=== PATIENT | female | born 1955 | race Caucasian/White ===

== ENCOUNTER 2017-03-15 17:22 | Inpatient (IN) | payer OTHER ==
[~2017-03-15] VITALS: Ht 157.5 cm; Wt 96.7 kg
[~2017-03-15 17:22] MED LIST: CIPR1TAB11 PO; CRS/10 PO; GLIP1TAB85 PO; LOSA1TAB PO; METF-384 PO
[2017-03-15] MEDS ORDERED: DILTIAZEM BOLUS / DRIP IV STA ×2 (17:49→19:40)
[2017-03-15 17:55] LABS: BASO % 1.3 %; BASO ABS # 0.13 K/uL (0-0.2); COMPLETE YES; EOS % 4.2 %; HEMATOCRIT 39.5 % (37-47); IG% 0.3 %; LYMPH % 34.6 %; LYMPH ABS # 3.52 K/uL (1.2-3.4); MEAN CELL VOLUME 87.6 fL (80-100); MEAN CORPUSCULAR HGB CONC 33.2 g/dl (32-36); MEAN PLATELET VOLUME 11.6 fL (7.4-10.4); MONO % 9.7 %; NEUT % 49.9 %; PLATELET COUNT 262 K/uL (130-400); RED BLOOD COUNT 4.51 M/uL (4.2-5.4); WHITE BLOOD COUNT 10.18 K/uL (4.8-10.8)
[2017-03-15] MEDS ORDERED: FLEC50TA20 PO (17:55)
[2017-03-15] MEDS ORDERED: ASPIRIN 81 MG CHEW PO STA (17:55)
[2017-03-15] MEDS ORDERED: DILTIAZEM HCL 5 MG/ML 5 ML VIAL IV SCH (18:00)
[2017-03-15] MEDS ORDERED: DILTIAZEM HCL INJ 125 MG in DEXTROSE 5% 100ML IV PRN (18:00)
[2017-03-15 18:07] LABS: BLOOD UREA NITROGEN 14 mg/dl (7-18); BUN/CREATININE RATIO 12.7 (10-20); CALCIUM 9.7 mg/dl (8.5-10.1); CARBON DIOXIDE 32 mmol/L (21-32); CHLORIDE 106 mmol/L (98-107); GLUCOSE 153 mg/dl (70-99); SODIUM 143 mmol/L (136-145)
[2017-03-15 18:12] LABS: CKMB/CK RATIO 1.5 (0-3.0)
--- NOTE | 2017-03-15 18:22 | DIAGNOSTIC IMAGING REPORT ---
CHEST ONE VIEW PORTABLE CLINICAL HISTORY: Chest pain. Atrial fibrillation. COMPARISON STUDY: Chest radiograph every 2015. FINDINGS: Lung volumes are normal. There is no consolidation. There is no evidence of pulmonary edema. Cardiac size is at the upper limits of normal. This is unchanged. No pneumothorax or pleural effusion is present. IMPRESSION: No acute cardiopulmonary findings. Electronically signed by: Ari Ricks M.D. 03/15/2017 6:21 PM Dictated Date/Time: 03/15/2017 6:20 PM
[2017-03-15] MEDS ORDERED: ALUMINUM/MAGNESIUM/SIMETH (MAALOX MAX) 30 ML UDC PO PRN (19:45)
[2017-03-15] MEDS ORDERED: MAGNESIUM HYDROXIDE SUSP 30 ML UDC PO PRN (19:45)
[2017-03-15] MEDS ORDERED: NITROGLYCERIN 0.4 MG SL PER TAB CHARGE SL PRN (19:45)
[2017-03-15] MEDS ORDERED: POLYETHYLENE (MIRALAX) 17 GM PACK PO PRN (19:45)
[2017-03-15] MEDS ORDERED: ACETAMINOPHEN 325 MG TAB PO PRN (19:45)
[2017-03-15] MEDS ORDERED: ONDANSETRON INJ 2 MG/ML 2 ML VIAL IV PRN (19:45)
[2017-03-15] MEDS ORDERED: SODIUM CHLORIDE 0.9% 1000ML 1,000 ML IV SCH (19:45)
[2017-03-15] MEDS ORDERED: IV FLUIDS COMPLETED PRN ×2 (20:15→20:30)
--- NOTE | 2017-03-15 20:16 | History and Physical ---
History & Physical Date & Time of Service: Mar 15, 2017 at 19:58 Chief Complaint: Chest Discomfort,A-Fib Primary Care Physician: Tacho Rincon PA-C History of Present Illness Source: patient 61 y/o F Hx PAF, HTN, HPL, DM - presents with palpitations and chest pressure. She is currently taking Flecainide and states she has not had a breakthrough episode of sustained AF for several months. Her rate on arrival to the hospital was close to 140. Her symptoms hacve resolved with correction of her rate in the ER. She denies SOB, N/V, light head, diaphoresis. 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 Status: Never Smoker Alcohol Use: none Drug Use: none Marital Status: Occupational Status: employed Allergies Coded Allergies: Sulfamethoxazole w/Trimethoprim (Unverified Allergy, Severe, weakness, 05/05) Penicillins (Verified Allergy, Unknown, CHILDHOOD REACTION, 05/05/16) Home Medications Scheduled Flecainide (Tambocor), 50 MG PO BID Glipizide Xl (Glucotrol Xl), 10 MG PO BID Losartan Potassium (Cozaar), 25 MG PO DAILY Metformin Hcl (Glucophage), 1,000 MG PO BID Rosuvastatin Calcium (Crestor), 10 MG PO DAILY Review of Systems Constitutional: No chills, No fever, No sweats Eyes: No eye pain, No worsening of vision ENT: No hearing loss, No nasal symptoms, No unusual epistaxis Respiratory: No cough, No sputum, No wheezing Cardiovascular: + problem reported (mild chest pressure), No PND, No chest pain , No orthopnea Abdomen: No nausea, No pain, No vomiting Musculoskeletal: No joint pain, No muscle pain Genitourinary - Female: No dysuria, No hematuria, No urinary frequency, No urinary incontinence, No urinary retention, No urinary urgency Neurologic: No memory loss, No paralysis, No weakness Psychiatric: No anhedonism, No depression symptoms Endocrine: No excessive thirst, No fatigue Hematologic / Lymphatic: No abnormal bleeding/bruising Integumentary: No itch, No rash Allergic / Immunologic: No environmental allergies, No pet sensitivities, No seasonal allergies Physical Exam Vital Signs Date Time Temp Pulse Resp B/P Pulse Ox O2 Delivery O2 Flow Rate FiO2 03/15/17 19:11 104 20 115/82 96 Room Air 03/15/17 18:46 107 03/15/17 18:20 94 18 120/78 98 Room Air 03/15/17 18:05 146 16 134/97 95 Room Air 03/15/17 17:48 142 03/15/17 17:45 139 20 147/119 99 Room Air 03/15/17 17:42 Room Air 03/15/17 17:30 36.6 140 20 179/90 96 Room Air General Appearance: WD/WN, no apparent distress Head: normocephalic Eyes: normal inspection, PERRL, EOMI ENT: normal ENT inspection, pharynx normal Neck: supple, no JVD Respiratory/Chest: chest non-tender, lungs clear Cardiovascular: no edema, no gallop, no JVD, no murmur, + irregularly irregular Abdomen/GI: normal bowel sounds, non tender, soft Back: normal inspection, no CVA tenderness, no muscle spasm Extremities/Musculoskelatal: normal inspection, no calf tenderness, normal capillary refill Neurologic/Psych: functional consultant II-XII nml as tested, no motor/sensory deficits, alert, normal mood/affect, normal reflexes, oriented x 3 Skin: normal color, warm/dry, no rash Diagnostics Laboratory Results Results Past 24 Hours Test 03/15/17 17:39 Range/Units White Blood Count 10.18 4.8-10.8 K/uL Red Blood Count 4.51 4.2-5.4 M/uL Hemoglobin 13.1 12.0-16.0 g/dL Hematocrit 39.5 37-47 % Mean Corpuscular Volume 87.6 80-100 fL Mean Corpuscular Hemoglobin 29.0 25-34 pg Mean Corpuscular Hemoglobin Concent 33.2 32-36 g/dl Platelet Count 262 130-400 K/uL Mean Platelet Volume 11.6 7.4-10.4 fL Neutrophils (%) (Auto) 49.9 % Lymphocytes (%) (Auto) 34.6 % Monocytes (%) (Auto) 9.7 % Eosinophils (%) (Auto) 4.2 % Basophils (%) (Auto) 1.3 % Neutrophils # (Auto) 5.08 1.4-6.5 K/uL Lymphocytes # (Auto) 3.52 1.2-3.4 K/uL Monocytes # (Auto) 0.99 0.11-0.59 K/uL Eosinophils # (Auto) 0.43 0-0.5 K/uL Basophils # (Auto) 0.13 0-0.2 K/uL RDW Standard Deviation 46.4 36.4-46.3 fL RDW Coefficient of Variation 14.4 11.5-14.5 % Immature Granulocyte % (Auto) 0.3 % Immature Granulocyte # (Auto) 0.03 0.00-0.02 K/uL Sodium Level 143 136-145 mmol/L Potassium Level 4.0 3.5-5.1 mmol/L Chloride Level 106 98-107 mmol/L Carbon Dioxide Level 32 21-32 mmol/L Anion Gap 5.0 3-11 mmol/L Blood Urea Nitrogen 14 7-18 mg/dl Creatinine 1.10 0.60-1.20 mg/dl Est Creatinine Clear Calc Drug Dose 58.2 ml/min Estimated GFR () 62.8 Estimated GFR (Non- 54.1 BUN/Creatinine Ratio 12.7 10-20 Random Glucose 153 70-99 mg/dl Calcium Level 9.7 8.5-10.1 mg/dl Total Creatine Kinase 238 26-192 U/L Creatine Kinase MB 3.6 0.5-3.6 ng/ml Creatine Kinase MB Ratio 1.5 0-3.0 Troponin I < 0.015 0-0.045 ng/ml EKG AF/RVR, LVH Impression Assessment and Plan 61 y/o F Hx PAF, HTN, HPL, DM - presents with palpitations and chest pressure. She is currently taking Flecainide and states she has not had a breakthrough episode of sustained AF for several months. Her rate on arrival to the hospital was close to 140. Her symptoms hacve resolved with correction of her rate in the ER. She denies SOB, N/V, light head, diaphoresis. 1) AF/RVR - pt placed on a Cardizem drip and admitted to telemetry - her rate is at ~ 100 following a 10mg bolus. Flecainide is held as it would not be a good choice of her fib persists. She has enough risk factors to merit chronic anticoagulation. 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 As she described some chest pressure and has a mild CK elevation, we will trend her troponin. 2) DM - placed on SS - oral meds held 3) HTN - She is on a Cardizem drip so we will held her BP meds pending AM evaluation. 4) HPL - cont Crestor Full code - Full-brand Lovenox Total time for this admit including review of labs, meds, EKG - discussion with ER MD and pt - 34 min VTE Prophylaxis VTE Risk Assessment Done? Y/N: Yes Risk Level: Low
[2017-03-15 21:00] VITALS: BP 131/74; PULSE 66; TEMP 36.6; O2SAT 96; Ht 157.5 cm; Wt 96.7 kg
[2017-03-15] MEDS: INSULIN ASPART 100 UNITS/ML 3 ML PEN SC SCH (21:00)
--- NOTE | 2017-03-15 21:00 | EMERGENCY ROOM VISIT NOTE ---
History Report prepared by Thuanibshlomo: Bronson Molina Under the Supervision of: Dr. López Rodrigues D.O. 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 She notes that her heart is racing. The patient had an episode of atrial fibrillation last year, when she felt similar palpitations. She is on Flecainide. She notes some chest pressure as well. She denies other cardiac history. She is not on blood thinners other than aspirin. Patient denies headache, change in vision, fevers, shortness of breath, hemoptysis, leg swelling, nausea, vomiting, diarrhea, pain with urination, and melena. 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 A total of 10 systems reviewed and were otherwise negative. Past Medical & Surgical Medical Problems: (1) Atrial fibrillation with RVR (2) Diab Jennifer Wo Compl, Type Ii Or Unspec Type, Not Uncntrld (3) Endometriosis (4) New onset atrial fibrillation Surgical Problems: (1) History of abdominoplasty (2) History of cholecystectomy (3) History of hysterectomy (4) Incisional hernia (5) Status post breast reduction Family History FH: cancer FH: diabetes mellitus FH: gallbladder disease FH: heart disease FH: hypertension FH: kidney disease FH: lung disease Social History Smoking Status: Never Smoker Alcohol Use: none Drug Use: none Marital Status: Housing Status: lives with family Occupation Status: employed Current/Historical Medications Scheduled Flecainide (Tambocor), 50 MG PO BID Glipizide Xl (Glucotrol Xl), 10 MG PO BID Losartan Potassium (Cozaar), 25 MG PO DAILY Metformin Hcl (Glucophage), 1,000 MG PO BID Rosuvastatin Calcium (Crestor), 10 MG PO DAILY Allergies Coded Allergies: Sulfamethoxazole w/Trimethoprim (Unverified Allergy, Severe, weakness, 05/05) Penicillins (Verified Allergy, Unknown, CHILDHOOD REACTION, 05/05/16) Physical Exam Vital Signs Date Time Temp Pulse Resp B/P Pulse Ox O2 Delivery O2 Flow Rate FiO2 03/15/17 20:31 83 18 132/83 96 Room Air 03/15/17 19:11 104 20 115/82 96 Room Air 03/15/17 18:46 107 03/15/17 18:20 94 18 120/78 98 Room Air 03/15/17 18:05 146 16 134/97 95 Room Air 03/15/17 17:48 142 03/15/17 17:45 139 20 147/119 99 Room Air 03/15/17 17:42 Room Air 03/15/17 17:30 36.6 140 20 179/90 96 Room Air Physical Exam GENERAL: Sitting up in bd, disheveled, no acute distress, nontoxic. EYE EXAM: normal conjunctiva. OROPHARYNX: no exudate, no erythema, lips, buccal mucosa, and tongue normal and mucous membranes are moist NECK: supple, no nuchal rigidity, no adenopathy, non-tender LUNGS: Clear to auscultation. Normal chest wall mechanics HEART: Tachycardic, irregularly irregular rhythm. No murmurs, S1 normal and S2 normal ABDOMEN: abdomen soft, non-tender, normo-active bowel sounds, no masses, no rebound or guarding. BACK: Back is symmetrical on inspection and there is no deformity, no midline tenderness, no CVA tenderness. SKIN: no rashes and no bruising UPPER EXTREMITIES: upper extremities are grossly normal. LOWER EXTREMITIES: No pitting edema. NEURO EXAM: Normal sensorium, cranial nerves II-XII grossly intact, normal speech, no gross weakness of arms, no gross weakness of legs. Gross sensation intact. Medical Decision & Procedures ER Provider Diagnostic Interpretation: Radiology results as stated below per my review and the radiologist's interpretation: CHEST ONE VIEW PORTABLE CLINICAL HISTORY: Chest pain. Atrial fibrillation. COMPARISON STUDY: Chest radiograph every 2015. FINDINGS: Lung volumes are normal. There is no consolidation. There is no evidence of pulmonary edema. Cardiac size is at the upper limits of normal. This is unchanged. No pneumothorax or pleural effusion is present. IMPRESSION: No acute cardiopulmonary findings. Electronically signed by: Ari Ricks M.D. 03/15/2017 6:21 PM Dictated Date/Time: 03/15/2017 6:20 PM Laboratory Results 03/15/17 17:39 Red Blood Count 4.51, Mean Corpuscular Volume 87.6, Mean Corpuscular Hemoglobin 29.0, Mean Corpuscular Hemoglobin Concent 33.2, Mean Platelet Volume 11.6, Neutrophils (%) (Auto) 49.9, Lymphocytes (%) (Auto) 34.6, Monocytes (%) (Auto) 9.7, Eosinophils (%) (Auto) 4.2, Basophils (%) (Auto) 1.3, Neutrophils # (Auto) 5.08, Lymphocytes # (Auto) 3.52, Monocytes # (Auto) 0.99, Eosinophils # (Auto) 0.43, Basophils # (Auto) 0.13 03/15/17 17:39 Test 03/15/17 17:39 White Blood Count 10.18 K/uL (4.8-10.8) Red Blood Count 4.51 M/uL (4.2-5.4) Hemoglobin 13.1 g/dL (12.0-16.0) Hematocrit 39.5 % (37-47) Mean Corpuscular Volume 87.6 fL (80-100) Mean Corpuscular Hemoglobin 29.0 pg (25-34) Mean Corpuscular Hemoglobin Concent 33.2 g/dl (32-36) Platelet Count 262 K/uL (130-400) Mean Platelet Volume 11.6 fL (7.4-10.4) Neutrophils (%) (Auto) 49.9 % Lymphocytes (%) (Auto) 34.6 % Monocytes (%) (Auto) 9.7 % Eosinophils (%) (Auto) 4.2 % Basophils (%) (Auto) 1.3 % Neutrophils # (Auto) 5.08 K/uL (1.4-6.5) Lymphocytes # (Auto) 3.52 K/uL (1.2-3.4) Monocytes # (Auto) 0.99 K/uL (0.11-0.59) Eosinophils # (Auto) 0.43 K/uL (0-0.5) Basophils # (Auto) 0.13 K/uL (0-0.2) RDW Standard Deviation 46.4 fL (36.4-46.3) RDW Coefficient of Variation 14.4 % (11.5-14.5) Immature Granulocyte % (Auto) 0.3 % Immature Granulocyte # (Auto) 0.03 K/uL (0.00-0.02) Anion Gap 5.0 mmol/L (3-11) Est Creatinine Clear Calc Drug Dose 58.2 ml/min Estimated GFR () 62.8 Estimated GFR (Non- 54.1 BUN/Creatinine Ratio 12.7 (10-20) Calcium Level 9.7 mg/dl (8.5-10.1) Total Creatine Kinase 238 U/L (26-192) Creatine Kinase MB 3.6 ng/ml (0.5-3.6) Creatine Kinase MB Ratio 1.5 (0-3.0) Troponin I < 0.015 ng/ml (0-0.045) Laboratory results per my review. Medications Administered Medications (Trade) Dose Ordered Sig/Juanita Route Start Time Stop Time Status Last Admin Dose Admin Aspirin (Aspirin Chew) 324 mg NOW STAT PO 03/15/17 17:55 03/15/17 17:57 DC 03/15/17 18:02 324 MG Diltiazem HCl 10 mg 10 mg TODAY@1800 IV 03/15/17 18:00 03/15/17 18:01 DC 03/15/17 18:01 10 MG Diltiazem HCl/ Dextrose (Cardizem Inj/D5 100ml) 125 ml @ 0 mls/hr Q0M PRN IV 03/15/17 18:00 04/14/17 17:59 03/15/17 18:05 5 MLS/HR ECG Indication: palpitations Rate (beats per minute): 142 Rhythm: atrial fibrillation (with RVR) Findings: ST depression (Lateral and AvL), left axis deviation Comparison ECG Date: 2015 Change: Atrial fibrillation and ST depressions are new compared to prior EKG. ED Course ED COURSE: Vital signs were reviewed and showed tachycardia. The patients medical record was reviewed The above diagnostic studies were performed and reviewed. ED treatments and interventions as stated above. 1735: The patient was evaluated in room C10. A complete history and physical examination was performed. 1748: Discussed the case with Dr. Edouard, Tub Attendant. 1755: Aspirin 324 mg PO. 1800: Diltiazem HCl 125 mg / dextrose 125 ml @ 0 mls/hr, Diltiazem 10 mg IV. 1830: The patient's heart rate is down to the 90s and low 100s. 1937: Updated the patient. 1944: Discussed the case with Dr. Liz [facility]. The patient will be evaluated. 1999: Upon reevaluation, the patient is doing well.I discussed my findings with the patient and she understands and agrees with the treatment plan. Based on the patients age, coexisting illnesses, exam and lab findings the decision to treat as an inpatient was made. The patient remained stable while under my care. The patient will be evaluated for further management. Medical Decision Differential diagnoses includes but is not limited to acute coronary syndrome, myocardial infarction, pericarditis, pulmonary embolus, aortic dissection, pneumonia, pneumothorax, musculoskeletal, shingles, esophageal. Patient is a 61-year-old female who presents the ER for palpitations associated with chest tightness. Upon presentation she is found to be in A. fib with RVR and rate in the 140s. Systolic pressures were in the 140s as well. She was given Cardizem drip and bolus following discussion with cardiology as she is on flecainide. She admits to taking 25 mg of flecainide. She admits that she should be on anticoagulation but has not been taking it. Following the drip and bolus of Cardizem her heart rate trended down to the 80s. Patient was monitored closely while on the Cardizem drip. She was admitted to internal medicine for A. fib with RVR. She was given a dose of aspirin. She was not given nitroglycerin as this examination with the Cardizem they have decreased her pressure to significantly. Consults Time Called: 1739 Consulting Physician: Dr. Edouard, Tub Attendant. Returned Call: 1747 1747: Discussed the case with Dr. Edouard, Tub Attendant. Additional Consults: Time Called: 1919 Consulted Physician: Dr. Liz [facility] Returned Call: 1944 Additional Comments: 1944: Discussed the case with Dr. Liz [facility]. The patient will be evaluated. Impression Primary Impression: Atrial fibrillation with RVR Critical Care I have personally spent 35 minutes of critical care time in the direct management of this patient. This includes bedside care, interpretation of diagnostic studies, and testing, discussion with consultants, patient, and family members, and other required patient management activities. This 35 minutes is in excess of all separately billable procedures. Scribe Attestation The scribe's documentation has been prepared under my direction and personally reviewed by me in its entirety. I confirm that the note above accurately reflects all work, treatment, procedures, and medical decision making performed by me. Departure Information Dispostion Being Evaluated By Hospitalist Referrals Tacho Rincon PA-C (PCP) Patient Instructions [facility]
[2017-03-15] MEDS: ENOXAPARIN 100 MG/1ML SYR SQ SCH (21:44)
[2017-03-15] MEDS ORDERED: GLUCOSE 40% GEL 15 GM TUBE PO PRN (21:45)
[2017-03-15] MEDS ORDERED: DEXTROSE 50% 50 ML SYR IV PRN (21:45)
[2017-03-15] MEDS ORDERED: GLUCOSE 10 TABS/TUBE PO PRN (21:45)
[2017-03-15] MEDS ORDERED: GLUCAGON FOR INJ 1 MG VIAL SQ PRN (21:45)
[2017-03-15 23:30] VITALS: BP 96/46; PULSE 62; TEMP 36.4; O2SAT 95
[2017-03-16 00:01] VITALS: O2SAT 96
[2017-03-16 03:30] VITALS: BP 96/44; PULSE 56; TEMP 36.5; O2SAT 95
[2017-03-16 04:00] VITALS: O2SAT 95
[2017-03-16 04:21] VITALS: BP 98/48; PULSE 56
[2017-03-16] MEDS: INSULIN ASPART 100 UNITS/ML 3 ML PEN SC SCH (07:00)
[2017-03-16 07:19] VITALS: BP 119/59; PULSE 57; TEMP 37; O2SAT 96
[2017-03-16] MEDS: ENOXAPARIN 100 MG/1ML SYR SQ SCH (07:51)
[2017-03-16] MEDS ORDERED: ASPIRIN 81 MG ECTAB PO SCH (09:00)
[2017-03-16] MEDS ORDERED: ROSUVASTATIN CALCIUM 10 MG TAB PO SCH (09:00)
[2017-03-16] MEDS ORDERED: APIX1TAB3 PO (10:32)
--- NOTE | 2017-03-16 10:34 | Discharge Instructions ---
Discharge Instructions Admission Admission Date: Mar 15, 2017 at 20:22 Admission Diagnosis: Atrial Fibrillation With Rvr. Discharge Care Plan - Problem: Atrial Fibrillation Care Plan - Goal(s): Decrease discomfort, Improve function Care Plan - Instructions: Activity Recommendations: no limitations Recommended Home Diet: Type 2 Diabetes AHA Provider Instructions: Please expect a call notifying you of your appointment with Cardiology VTE Core Measure Inpt VTE Proph given/why not?: Enoxaparin (Lovenox)SQ [place] Recommendations: Call your doctor if: * Temperature above 101 degrees * Pain not relieved by pain medicine ordered * There is increased drainage or redness from any incision * You have any unanswered questions or concerns. Your Doctors Instructions noted above were prepared by provider Varsha Manriquez.
[2017-03-16 10:36] VITALS: BP 119/59; PULSE 65; TEMP 37; O2SAT 96
--- NOTE | 2017-03-16 11:25 | Discharge Summary ---
Discharge Summary Date of Service Mar 16, 2017. Discharge Summary Admission Date: Mar 15, 2017 at 20:22 Discharge Date: Mar 16, 2017 Discharge Disposition: Home Principal Diagnosis: atrial fibrillation with RVR Medication Reconciliation New Medications: Apixaban (Eliquis) 5 Mg Tab 5 MG PO BID for 30 Days, #60 TAB Continued Medications: Flecainide (Tambocor) 50 Mg Tab 50 MG PO BID, TAB Glipizide Xl (Glucotrol Xl) 10 Mg Tab 10 MG PO BID Losartan Potassium (Cozaar) 25 Mg Tab 25 MG PO DAILY Metformin Hcl (Glucophage) 1,000 Mg Tab 1000 MG PO BID Rosuvastatin Calcium (Crestor) 10 Mg Tab 10 MG PO DAILY Discharge Exam Review of Systems: Constitutional: No chills Eyes: No worsening of vision ENT: No unusual epistaxis Respiratory: No sputum Cardiovascular: No orthopnea Abdomen: No nausea Musculoskeletal: No muscle pain Genitourinary - Female: No urinary frequency Genitourinary - Male: No dysuria, No hematuria Neurologic: No memory loss, No paralysis Psychiatric: No depression symptoms Endocrine: No fatigue Physical Exam: General Appearance: WD/WN, no apparent distress Eyes: normal inspection ENT: normal ENT inspection Neck: supple, no adenopathy Respiratory/Chest: chest non-tender, lungs clear, normal breath sounds Cardiovascular: regular rate, rhythm, no edema, no gallop, no JVD Abdomen / GI: normal bowel sounds, non tender, soft Extremities: normal inspection, no calf tenderness Skin: normal color Lymphatic: no adenopathy Hospital Course 61 y/o F Hx PAF, HTN, HPL, DM - presents with palpitations and chest pressure. She is currently taking Flecainide and states she has not had a breakthrough episode of sustained AF for several months. Her rate on arrival to the hospital was close to 140. Her symptoms resolved with correction of her rate in the ER. She denies SOB, N/V, light head, diaphoresis. 1) AF/RVR - pt placed on a Cardizem drip and admitted to telemetry - her rate is at ~ 100 following a 10mg bolus. Flecainide is held as it would not be a good choice of her fib persists. We have placed her on full-dose Lovenox. Pt converted to sinus rhythm and her heart rate dropped to the 60's. patient remained off Cardizem drip for > 12 hours and HR remained in NSR in the 60's. I spoke with Dr. Flores of cardiology who was dehydrogenation operator head the next morning and he agreed to restart pt on her flecainide. Patient stated her PCP had started her on eliquis for which she had the pills. She was instructed to start taking eliquis. Patient was discharged home in stable condition with arrangements made to schedule an appointment for pt to see Cardiology in 2-4 weeks Total Time Spent: Greater than 30 minutes This includes examination of the patient, discharge planning, medication reconciliation, and communication with other providers. Discharge Instructions Please refer to the electronic Patient Visit Report (Discharge Instructions) for additional information.
[2017-03-16] MEDS ORDERED: FLECAINIDE ACETATE 100 MG TAB PO SCH (21:00)
== END 2017-03-16 10:57 | disposition home or self-care (01) | DRG 310 ==
LOC: ENRESERVDT → ENRESERVTM → C.EDB 17:25 → C.2E 20:22
PROVIDERS: ADMIT Internal Medicine; ATTEND Internal Medicine
DX: I48.0 Paroxysmal atrial fibrillation (principal); I10 Essential (primary) hypertension; E11.9 Type 2 diabetes mellitus without complications; Z82.49 Family history of ischemic heart disease and other diseases of the circulatory system; Z83.3 Family history of diabetes mellitus

== ENCOUNTER → 2017-05-16 | Outpatient (CLI) | payer OTHER ==
[~2017-05-16] MED LIST changes: -CIPR1TAB11 PO; +CLR10 PO; +ELQ25 PO; +FLEC50TA20 PO; +FLUT0.15 NAE; +LPR25 PO; +PRT/20 PO
[2017-05-16 12:52] LABS: GLUCOSE,FASTING 141 mg/dl (70-99)
[2017-05-16 12:59] LABS: CHOLESTEROL 164 mg/dl (0-200); CHOLESTEROL/HDL RATIO 3.3; HDL CHOLESTEROL 49 mg/dl; TRIGLYCERIDES 159 mg/dl (0-150); VERY LOW DENSITY LIPOPROT CALC 32 mg/dl
== END | disposition home or self-care (01) ==
LOC: C.LABPBG 08:45
PROVIDERS: ATTEND Physician Assistant Medical
DX: Z00.01 Encounter for general adult medical examination with abnormal findings (principal)

== ENCOUNTER 2017-05-27 17:18 | Emergency (ER) | payer OTHER ==
[~2017-05-27] VITALS: Ht 157.5 cm; Wt 92.0 kg
[~2017-05-27 17:18] MED LIST changes: -CLR10 PO; -ELQ25 PO; -FLUT0.15 NAE; -LPR25 PO; -PRT/20 PO
[2017-05-27 17:21] VITALS: TEMP 36.7; Ht 157.5 cm; Wt 92.0 kg
[2017-05-27] MEDS ORDERED: SODIUM CHLORIDE 0.9% 1000ML 1,000 ML IV STA (17:29)
[2017-05-27] MEDS ORDERED: LPR25 PO (17:37)
[2017-05-27] MEDS ORDERED: PRT/20 PO (17:38)
[2017-05-27] MEDS ORDERED: ELQ25 PO (17:38)
[2017-05-27] MEDS ORDERED: CLR10 PO (17:38)
[2017-05-27] MEDS ORDERED: FLUT0.15 NAE (17:38)
[2017-05-27] MEDS ORDERED: ONDANSETRON INJ 2 MG/ML 2 ML VIAL IV STA (17:47)
--- NOTE | 2017-05-27 17:57 | DIAGNOSTIC IMAGING REPORT ---
CHEST ONE VIEW PORTABLE CLINICAL HISTORY: EVALUATE ALTERED MENTAL STATUS/WEAKNESS COMPARISON STUDY: 03/15/2017 FINDINGS: The bones soft tissues and hemidiaphragms are normal. The cardiomediastinal silhouette is normal. The lungs are clear. The pulmonary vasculature is normal. IMPRESSION: Negative chest. Electronically signed by: Timur Carrion M.D. 05/27/2017 5:56 PM Dictated Date/Time: 05/27/2017 5:56 PM
[2017-05-27 18:31] LABS: BASO % 1.5 %; BASO ABS # 0.09 K/uL (0-0.2); COMPLETE YES; EOS % 7.8 %; HEMATOCRIT 35.7 % (37-47); IG% 0.3 %; LYMPH % 46.9 %; LYMPH ABS # 2.89 K/uL (1.2-3.4); MEAN CELL VOLUME 89.9 fL (80-100); MEAN CORPUSCULAR HGB CONC 33.3 g/dl (32-36); MEAN PLATELET VOLUME 11.9 fL (7.4-10.4); MONO % 8.3 %; NEUT % 35.2 %; PLATELET COUNT 205 K/uL (130-400); RED BLOOD COUNT 3.97 M/uL (4.2-5.4); WHITE BLOOD COUNT 6.16 K/uL (4.8-10.8)
[2017-05-27 18:45] LABS: PROTHROMBIN TIME (PATIENT) 10.7 SECONDS (9.0-12.0)
[2017-05-27 18:51] LABS: ALT/SGPT 27 U/L (12-78); BLOOD UREA NITROGEN 13 mg/dl (7-18); BUN/CREATININE RATIO 13.6 (10-20); CALCIUM 9.3 mg/dl (8.5-10.1); CARBON DIOXIDE 31 mmol/L (21-32); CHLORIDE 102 mmol/L (98-107); CREATININE 0.95 mg/dl (0.60-1.20); GLUCOSE 103 mg/dl (70-99); MAGNESIUM 1.8 mg/dl (1.8-2.4); POTASSIUM 4.2 mmol/L (3.5-5.1); SODIUM 138 mmol/L (136-145)
[2017-05-27 19:00] LABS: ALKALINE PHOSPHATASE 66 U/L (45-117); AST/SGOT 19 U/L (15-37); CKMB/CK RATIO 1.5 (0-3.0)
[2017-05-27 20:04] LABS: URINE APPEARANCE CLEAR (CLEAR); URINE BILIRUBIN NEG (NEG); URINE COLOR YELLOW; URINE NITRITE NEG (NEG); UROBILINOGEN NEG (NEG); ZZUR CULT IF INDIC CLEAN CATCH YES
[2017-05-27 20:06] LABS: MANUAL MICROSCOPIC REQUIRED? NO; REVIEW REQ? NO
[2017-05-27 20:30] VITALS: BP 126/70; PULSE 50; O2SAT 98
--- NOTE | 2017-05-27 20:36 | EMERGENCY ROOM VISIT NOTE ---
History Report prepared by Nataly: Florencio Lino Under the Supervision of: Dr. Yanick Almeida D.O. 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 Pt then sat down. Coworkers took blood pressure and it was in the 170's. Pt does not have a history of HTN. Pt recently decreased Metoporol for her AFib. Pt stated that she became dizzy last month which prompted her to go to the doctor. Pt was diagonsed with allergies and sinusitis. Pt has been taking allergy medication. Pt stated that she is eating and drinking normally. Pt experienced nausea with the near syncope. Pt states that she is still dizzy. 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 This also happened to her a couple of weeks ago. 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 She saw her PCP, and they thought that it was related to her Metoprolol, so they lowered her dosage. She is on that for her history of atrial fibrillation. She was diagnosed with allergies and sinusitis. Today, this occurred again, but she notes that it was worse this time. She became dizzy and nauseated again, so she sat down. Her coworkers took her blood pressure, and it was in the 170's systolic. She does not have a history of hypertension. She denies any vomiting, diarrhea, chest pain, or shortness of breath. She has been eating and drinking normally. She denies any recent illnesses. 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 Review of Systems See HPI for pertinent positives & negatives. A total of 10 systems reviewed and were otherwise negative. Past Medical & Surgical Medical Problems: (1) Atrial fibrillation with RVR (2) Diab Jennifer Wo Compl, Type Ii Or Unspec Type, Not Uncntrld (3) Endometriosis (4) New onset atrial fibrillation Surgical Problems: (1) History of abdominoplasty (2) History of cholecystectomy (3) History of hysterectomy (4) Incisional hernia (5) Status post breast reduction Family History FH: cancer FH: diabetes mellitus FH: gallbladder disease FH: heart disease FH: hypertension FH: kidney disease FH: lung disease Social History Smoking Status: Never Smoker Alcohol Use: none Drug Use: none Marital Status: Housing Status: lives with family Occupation Status: employed Current/Historical Medications Scheduled Apixaban (Eliquis), 2.5 MG PO BID Flecainide (Tambocor), 50 MG PO BID Fluticasone Propionate (Nasal) (Flonase Allergy Relief), Unknown Dose ERICKA DAILY Glipizide Xl (Glucotrol Xl), 10 MG PO BID Loratadine (Claritin), 10 MG PO DAILY Losartan Potassium (Cozaar), 25 MG PO DAILY Metformin Hcl (Glucophage), 1,000 MG PO BID Metoprolol Tartrate (Lopressor), 12.5 MG PO BID Pantoprazole (Protonix), Unknown Dose PO DAILY Allergies Coded Allergies: Sulfamethoxazole w/Trimethoprim (Unverified Allergy, Severe, weakness, ) Penicillins (Verified Allergy, Unknown, CHILDHOOD REACTION, 05/27/17) Physical Exam Vital Signs Date Time Temp Pulse Resp B/P (MAP) Pulse Ox O2 Delivery O2 Flow Rate FiO2 05/27/17 20:30 50 18 126/70 98 Room Air 05/27/17 18:40 51 20 150/67 97 Room Air 05/27/17 18:31 49 20 136/64 97 Room Air 51 150/67 55 151/66 05/27/17 18:14 52 05/27/17 17:21 36.7 98 18 176/99 98 Room Air Physical Exam CONSTITUTIONAL/VITAL SIGNS: Reviewed / noted above. GENERAL: Non-toxic in appearance. INTEGUMENTARY: Warm, dry, and [place]. HEAD: Normocephalic. EYES: without scleral icterus or trauma. ENT/OROPHARYNX: clear and moist. LYMPHADENOPATHY/NECK: Is supple without lymphadenopathy or meningismus. RESPIRATORY: Lungs clear and equal. CARDIOVASCULAR: Regular rate and rhythm. GI/ABDOMEN: Soft and nontender. No organomegaly or pulsatile mass. No rebound or guarding. Normal bowel sounds. EXTREMITIES: Warm and well perfused. BACK: No CVA tenderness. NEUROLOGICAL: Intact without focal deficits. PSYCHIATRIC: normal affect. MUSCULOSKELETAL: Normally developed with good muscle tone. Medical Decision & Procedures ER Provider Diagnostic Interpretation: Radiology results as stated below per my review and radiologist interpretation: CHEST ONE VIEW PORTABLE CLINICAL HISTORY: EVALUATE ALTERED MENTAL STATUS/WEAKNESS COMPARISON STUDY: 03/15/2017 FINDINGS: The bones soft tissues and hemidiaphragms are normal. The cardiomediastinal silhouette is normal. The lungs are clear. The pulmonary vasculature is normal. IMPRESSION: Negative chest. Electronically signed by: Timur Carrion M.D. 05/27/2017 5:56 PM Dictated Date/Time: 05/27/2017 5:56 PM Laboratory Results 05/27/17 18:17 Red Blood Count 3.97, Mean Corpuscular Volume 89.9, Mean Corpuscular Hemoglobin 30.0, Mean Corpuscular Hemoglobin Concent 33.3, Mean Platelet Volume 11.9, Neutrophils (%) (Auto) 35.2, Lymphocytes (%) (Auto) 46.9, Monocytes (%) (Auto) 8.3, Eosinophils (%) (Auto) 7.8, Basophils (%) (Auto) 1.5, Neutrophils # (Auto) 2.17, Lymphocytes # (Auto) 2.89, Monocytes # (Auto) 0.51, Eosinophils # (Auto) 0.48, Basophils # (Auto) 0.09 05/27/17 18:17 Test 05/27/17 18:17 05/27/17 19:15 White Blood Count 6.16 K/uL (4.8-10.8) Red Blood Count 3.97 M/uL (4.2-5.4) Hemoglobin 11.9 g/dL (12.0-16.0) Hematocrit 35.7 % (37-47) Mean Corpuscular Volume 89.9 fL (80-100) Mean Corpuscular Hemoglobin 30.0 pg (25-34) Mean Corpuscular Hemoglobin Concent 33.3 g/dl (32-36) Platelet Count 205 K/uL (130-400) Mean Platelet Volume 11.9 fL (7.4-10.4) Neutrophils (%) (Auto) 35.2 % Lymphocytes (%) (Auto) 46.9 % Monocytes (%) (Auto) 8.3 % Eosinophils (%) (Auto) 7.8 % Basophils (%) (Auto) 1.5 % Neutrophils # (Auto) 2.17 K/uL (1.4-6.5) Lymphocytes # (Auto) 2.89 K/uL (1.2-3.4) Monocytes # (Auto) 0.51 K/uL (0.11-0.59) Eosinophils # (Auto) 0.48 K/uL (0-0.5) Basophils # (Auto) 0.09 K/uL (0-0.2) RDW Standard Deviation 47.0 fL (36.4-46.3) RDW Coefficient of Variation 14.1 % (11.5-14.5) Immature Granulocyte % (Auto) 0.3 % Immature Granulocyte # (Auto) 0.02 K/uL (0.00-0.02) Prothrombin Time 10.7 SECONDS (9.0-12.0) Prothromb Time International Ratio 1.0 (0.9-1.1) Activated Partial Thromboplast Time 25.0 SECONDS (21.0-31.0) Partial Thromboplastin Ratio 1.0 Anion Gap 5.0 mmol/L (3-11) Est Creatinine Clear Calc Drug Dose 65.6 ml/min Estimated GFR () 74.9 Estimated GFR (Non- 64.6 BUN/Creatinine Ratio 13.6 (10-20) Calcium Level 9.3 mg/dl (8.5-10.1) Magnesium Level 1.8 mg/dl (1.8-2.4) Total Bilirubin 0.5 mg/dl (0.2-1) Direct Bilirubin 0.1 mg/dl (0-0.2) Aspartate Amino Transf (AST/SGOT) 19 U/L (15-37) Alanine Aminotransferase (ALT/SGPT) 27 U/L (12-78) Alkaline Phosphatase 66 U/L (45-117) Total Creatine Kinase 67 U/L (26-192) Creatine Kinase MB 1.0 ng/ml (0.5-3.6) Creatine Kinase MB Ratio 1.5 (0-3.0) Troponin I < 0.015 ng/ml (0-0.045) Total Protein 7.2 gm/dl (6.4-8.2) Albumin 3.6 gm/dl (3.4-5.0) Lipase 225 U/L (73-393) Thyroid Stimulating Hormone (TSH) 2.850 uIu/ml (0.300-4.500) Urine Color YELLOW Urine Appearance CLEAR (CLEAR) Urine pH 5.0 (4.5-7.5) Urine Specific [place] 1.010 (1.000-1.030) Urine Protein NEG (NEG) Urine Glucose (UA) NEG (NEG) Urine Ketones NEG (NEG) Urine Occult Blood NEG (NEG) Urine Nitrite NEG (NEG) Urine Bilirubin NEG (NEG) Urine Urobilinogen NEG (NEG) Urine Leukocyte Esterase LARGE (NEG) Urine WBC (Auto) 10-30 /hpf (0-5) Urine RBC (Auto) 0-4 /hpf (0-4) Urine Hyaline Casts (Auto) 0 /lpf (0-5) Urine Epithelial Cells (Auto) 10-20 /lpf (0-5) Urine Bacteria (Auto) NEG (NEG) Laboratory results as stated above per my review. Medications Administered Medications (Trade) Dose Ordered Sig/Juantia Route Start Time Stop Time Status Last Admin Dose Admin Sodium Chloride 1,000 ml @ 999 mls/hr Q1H1M STAT IV 05/27/17 17:29 05/27/17 18:29 DC 05/27/17 18:25 999 MLS/HR Ondansetron HCl (Zofran Inj) 4 mg NOW STAT IV 05/27/17 17:47 05/27/17 17:48 DC 05/27/17 18:25 4 MG ECG Indication: syncope (Near) Rate (beats per minute): 48 Rhythm: sinus bradycardia Findings: no acute ischemic change, no ectopy ED Course 1724: Previous medical records were reviewed. The patient was evaluated in room B6. A complete history and physical examination was performed. 1728: Ordered Sodium Chloride 1000 ml @ 999 mls/hr IV 1746: Ordered Zofran Inj 4 mg IV 2036: On reevaluation, the patient is resting. I discussed the results and findings with the patient. She verbalized agreement of the treatment plan. She was discharged home. Medical Decision Differential diagnosis: Etiologies such as vasovagal event, infection, hypoglycemia, electrolyte abnormalities, cardiac sources, intracerebral event, toxicologic, neurologic, as well as others were entertained. Medication Reconciliation: I attest that I have personally reviewed the patient' s current medication list. Patient was found to have a slightly elevated blood pressure due to circumstances. I do not believe that the patient requires hypertension monitoring. This is a 61-year-old female who presents to the ED with a chief complaint of feeling lightheaded while she was working today. 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 She states that she was standing and she became lightheaded and had to sit down. She got nauseated. She denied having chest pains, palpitations, shortness of breath or any other significant symptoms. She has been eating and drinking well. She denies any recent illness. She does have history of A. fib. She is unable to this. She is normally in a sinus rhythm. EKG today shows a sinus rhythm rate of 48. No acute injury or ectopy. CBC was unremarkable. PRP and CMP is normal. Chest x-ray is negative for acute disease. Troponin is negative. Urine did not show infection. The patient was treated with IV fluids. She was given IV Zofran. Orthostatic vital signs were okay. The patient was told results the test. She is felt to be stable for discharge and outpatient follow-up. Impression Primary Impression: Light-headed feeling Scribe Attestation The scribe's documentation has been prepared under my direction and personally reviewed by me in its entirety. I confirm that the note above accurately reflects all work, treatment, procedures, and medical decision making performed by me. Departure Information Dispostion Home / Self-Care Referrals Tacho Rincon PA-C (PCP) Forms HOME CARE DOCUMENTATION FORM, IMPORTANT VISIT INFORMATION Patient Instructions Dizziness Fainting Poss Causes, My [facility] Additional Instructions Follow-up with your doctor for further care and evaluation in 1-6 days. Return to the emergency department for worsening or new symptoms or any concerns. You have been examined and treated today on an emergency basis only. This is not a substitute for, or an effort to provide, complete comprehensive medical care. It is impossible to recognize and treat all injuries or illnesses in a single emergency department visit. It is therefore important that you follow up closely with your doctor. Call as soon as possible for an appointment.
== END 2017-05-27 20:55 | disposition home or self-care (01) ==
LOC: EDBD 17:18 → C.EDB 17:20
DX: R42 Dizziness and giddiness (principal); I10 Essential (primary) hypertension; I48.91 Unspecified atrial fibrillation; E11.9 Type 2 diabetes mellitus without complications; Z90.710 Acquired absence of both cervix and uterus; Z90.49 Acquired absence of other specified parts of digestive tract; Z90.89 Acquired absence of other organs; Z83.3 Family history of diabetes mellitus; Z82.49 Family history of ischemic heart disease and other diseases of the circulatory system; Z79.01 Long term (current) use of anticoagulants; Z79.84 Long term (current) use of oral hypoglycemic drugs; Z79.899 Other long term (current) drug therapy

== ENCOUNTER → 2017-07-17 | Outpatient (CLI) | payer OTHER ==
[~2017-07-17] MED LIST changes: +CLR10 PO; -CRS/10 PO; +ELQ25 PO; +FLUT0.15 NAE; +LPR25 PO; +PRT/20 PO
[2017-07-17 13:17] LABS: ESTIMATED AVERAGE GLUCOSE 174 mg/dl; HA1C FLAG Normal (Normal)
== END | disposition home or self-care (01) ==
LOC: C.LABPBG 08:04
PROVIDERS: ATTEND Physician Assistant Medical
DX: E11.65 Type 2 diabetes mellitus with hyperglycemia (principal)

== ENCOUNTER → 2018-07-22 | Outpatient (CLI) | payer OTHER ==
[2018-07-22 09:45] LABS: HEMATOCRIT 36.5 % (37-47); HEMOGLOBIN 11.7 g/dL (12.0-16.0); MEAN CELL VOLUME 89.9 fL (80-100); MEAN CORPUSCULAR HEMOGLOBIN 28.8 pg (25-34); MEAN CORPUSCULAR HGB CONC 32.1 g/dl (32-36); MEAN PLATELET VOLUME 11.9 fL (7.4-10.4); PLATELET COUNT 242 K/uL (130-400); RED CELL DISTRIBUTION WIDTH CV 14.2 % (11.5-14.5); RED CELL DISTRIBUTION WIDTH SD 46.3 fL (36.4-46.3); WHITE BLOOD COUNT 7.17 K/uL (4.8-10.8)
[2018-07-22 10:12] LABS: ALBUMIN 3.6 gm/dl (3.4-5.0); ALKALINE PHOSPHATASE 66 U/L (45-117); ALT/SGPT 33 U/L (12-78); AST/SGOT 23 U/L (15-37); BLOOD UREA NITROGEN 16 mg/dl (7-18); CARBON DIOXIDE 29 mmol/L (21-32); CREATININE 0.92 mg/dl (0.60-1.20); GLUCOSE 140 mg/dl (70-99); POTASSIUM 4.7 mmol/L (3.5-5.1); SODIUM 140 mmol/L (136-145); TOTAL PROTEIN 7.3 gm/dl (6.4-8.2)
[2018-07-22 10:17] LABS: CHOLESTEROL 153 mg/dl (0-200); GLUCOSE,FASTING 140 mg/dl (70-99); LDL CHOLESTEROL (DIRECT) 79 mg/dl
== END | disposition home or self-care (01) ==
LOC: C.LAB 08:52
PROVIDERS: ATTEND Physician Assistant Medical
DX: Z00.00 Encounter for general adult medical examination without abnormal findings (principal); I48.0 Paroxysmal atrial fibrillation

== ENCOUNTER 2020-12-06 14:00 | Observation (INO) ==
[2020-12-06] MEDS ORDERED: SODIUM CHLORIDE 0.9% 1000ML 500 ML IV ONE (14:14)
[2020-12-06] MEDS ORDERED: STAT IV Infusion **Titration per Protocol STA (14:14)
[2020-12-06] MEDS ORDERED: dilTIAZem HCl 5 MG/ML 5 ML VIAL IV STA (14:14)
[2020-12-06 14:26] LABS: Basophils # (auto) 0.07 K/uL (0-0.2); Eosinophils # (auto) 0.35 K/uL (0-0.5); Eosinophils % (auto) 4.8 %; Hematocrit (blood only) 36.1 % (37-47); Hemoglobin 11.9 g/dL (12.0-16.0); Immature Granulocytes # (auto) 0.01 K/uL (0.00-0.02); Immature Granulocytes % (auto) 0.1 %; Lymphocytes # (auto) 2.75 K/uL (1.2-3.4); Mean Corpuscular Hemoglobin 29.8 pg (25-34); Mean Corpuscular Volume 90.5 fL (80-100); Mean Platelet Volume 11.7 fL (7.4-10.4); Monocytes # (auto) 0.63 K/uL (0.11-0.59); Monocytes % (auto) 8.7 %; Neutrophils # (auto) 3.43 K/uL (1.4-6.5); Neutrophils % (auto) 47.4 %; Platelet Count 262 K/uL (130-400); RDW Coefficient of Variation 13.6 % (11.5-14.5); RDW Standard Deviation 45.2 fL (36.4-46.3); Red Blood Count 3.99 M/uL (4.2-5.4); White Blood Count 7.24 K/uL (4.8-10.8)
[2020-12-06 14:37] LABS: Partial Thromboplastin Ratio 0.9; Partial Thromboplastin Time 24.9 Seconds (21.0-31.0); Prothrombin Time 10.7 Seconds (9.0-12.0)
--- NOTE | 2020-12-06 14:40 | Emergency Department Note ---
Impression & Plan Atrial fibrillation with RVR, Anemia ED Provider Note NAME: ALLAN MURPHY AGE: 65 SEX: F : 1955 ARRIVES VIA: Walk-In INFORMANT: Patient ED PROVIDER(S): López Rodrigues DO CHIEF COMPLAINT: Dizzy and palpitations HPI: Patient is a 65-year-old female who presents the ER for A. fib RVR. She was feeling fine today. She got lunch. She felt her heart racing and flip- flopping. She felt dizzy coming back from lunch. She did have some coffee prior to this. They got an EKG upstairs and she was found to be in A. fib with RVR. She was brought down to the ER. She denies any headache or change in vision. No chest pain or shortness of breath. No nausea vomiting or diarrhea. Denies any dysuria urgency or frequency. History of A. fib with RVR and previo us ablation about 3 years ago at [facility]. She has been medically cleared from that standpoint off of flecainide and anticoagulation. ROS: See above HPI for pertinent positives & negatives. A total of 10 systems reviewed and were otherwise negative. PAST MEDICAL HISTORY:See Below PAST SURGICAL HISTORY:See Below FAMILY HISTORY:See Below SOCIAL HISTORY:See Below HOME MEDICATIONS:See Below ALLERGIES:See Below VITALS:See Below PHYSICAL EXAMINATION: GENERAL: Sitting up in bed, alert, well appearing, well nourished, no distress, non-toxic EYE EXAM: normal conjunctiva. OROPHARYNX: no exudate, no erythema, lips, buccal mucosa, and tongue normal and mucous membranes are moist NECK: supple, no nuchal rigidity, no adenopathy, non-tender LUNGS: Clear to auscultation. Normal chest wall mechanics HEART: Tachycardic and irregular regular, S1 normal and S2 normal ABDOMEN: abdomen soft, non-tender, normo-active bowel sounds, no masses, no rebound or guarding. UPPER EXTREMITIES: upper extremities are grossly normal. LOWER EXTREMITIES: No pitting edema. NEURO EXAM: Normal sensorium, cranial nerves II-XII grossly intact, normal speech, no gross weakness of arms, no gross weakness of legs. MEDICAL DECISION MAKING: Patient is a 65-year-old female who presents the ER for A. fib RVR. Patient ablation 3 years ago was found to be in A. fib RVR while at work today. Upon presentation heart rates in the 150s. IV was established blood work was obtained. Labs show no significant leukocytosis but mild anemia. INR unremarkable. BMP with LFTs bilirubin and troponin and lipase were unremarkable. Covid was negative. Chest x-ray was unremarkable. Patient was placed on Cardizem drip and bolus. Heart rate trended down. She was updated bedside. She is admitted to hospital for further work-up Triage Nursing notes reviewed. Prior medical records reviewed Vital Signs: reviewed and remarkable for A. cain RVR Differential diagnosis: Differential diagnoses includes but is not limited to acute coronary syndrome, myocardial infarction, pericarditis, pulmonary embolus, aortic dissection, pneumonia, pneumothorax, musculoskeletal, shingles, esophageal. ER treatment provided: See below Diagnostics interpreted by me: ECG: A. cain RVR rate of 126 Left axis No PVCs QTC 388 Cardiac Monitoring: An order was placed for continuous cardiac monitoring. The monitor shows a rate of 140 with Afib RVR rhythm. Laboratory studies: As stated above and show below. Imaging studies: Portable AP upright 1 view of the chest shows no focal infiltrate Consultation(s): Discussed with the hospitalist for further evaluation ED COURSE: Procedures: none Critical Care: I have personally spent 40 minutes of critical care time in the direct management of this patient. This includes bedside care, interpretation of diagnostic studies, and testing, discussion with consultants, patient, and family members, and other required patient management activities. This 40 minutes is in excess of all separately billable procedures. Past Med/Surg History Medical History (Updated 12/06/20 @ 17:55 by López Rodrigues DO) Atrial fibrillation with RVR Diabetes Endometriosis Surgical History History of abdominoplasty History of bilateral carpal tunnel release History of cholecystectomy History of hysterectomy Incisional hernia Status post breast reduction Social History Smoking Status: Never smoker marital status: Feels Safe at Home: Yes Allergies Allergies Allergy/AdvReac Type Severity Reaction Status Date / Time Bactrim Allergy Severe weakness Unverified 05/27/17 17:36 sulfamethoxazole Allergy Severe weakness Verified 12/06/20 15:10 trimethoprim Allergy Severe weakness Verified 12/06/20 15:10 Penicillins Allergy Unknown CHILDHOOD Verified 12/06/20 15:10 REACTION Home Meds Home Medications Medication Instructions Recorded Confirmed losartan 25 mg PO DAILY 05/13/20 12/06/20 metformin 1,000 mg PO BID 05/13/20 12/06/20 rosuvastatin 10 mg PO DAILY 05/13/20 12/06/20 acetaminophen [Tylenol Extra 1,000 mg PO Q6H PRN 12/06/20 12/06/20 Strength] semaglutide [Ozempic] 0.5 mg SUBCUT WK 12/06/20 12/06/20 Previous Rx's Medication Instructions Recorded diclofenac sodium 75 mg 75 mg PO BID PRN #60 tab 08/24/20 tablet,delayed release Results & Data (ED) Vital Signs Vital Signs - 24 hr 12/06/20 14:06 12/06/20 14:07 12/06/20 14:11 Pulse Rate 122 H 120 H Pulse Rate [Left Finger] 128 H Pulse Rate from SpO2 Sensor Respiratory Rate 24 24 24 Respiratory Effort / Characteristics Non-Labored Respiratory Depth Normal Blood Pressure 168/109 H Blood Pressure [Left Arm] 136/90 Blood Pressure Mean 128 Blood Pressure Mean [Left Arm] 105 Pulse Oximetry 98 99 Oxygen Delivery Method Room Air Room Air Sepsis Recent Fever Within 48 Hours No Sepsis New/Unexplained Change in Mental Status N/A Sepsis Action Taken by Nursing No Action Required 12/06/20 14:20 12/06/20 14:30 12/06/20 14:40 Pulse Rate 121 H 112 H 133 H Pulse Rate [Left Finger] Pulse Rate from SpO2 Sensor 116 H 113 H 126 H Respiratory Rate 19 22 18 Respiratory Effort / Characteristics Respiratory Depth Blood Pressure 150/74 H 143/102 H 130/90 Blood Pressure [Left Arm] Blood Pressure Mean 104 108 103 Blood Pressure Mean [Left Arm] Pulse Oximetry 97 97 96 Oxygen Delivery Method Room Air Sepsis Recent Fever Within 48 Hours Sepsis New/Unexplained Change in Mental Status Sepsis Action Taken by Nursing 12/06/20 14:45 12/06/20 14:50 12/06/20 14:53 Pulse Rate 118 H 132 H 78 Pulse Rate [Left Finger] Pulse Rate from SpO2 Sensor 120 H 122 H 79 Respiratory Rate 20 21 18 Respiratory Effort / Characteristics Respiratory Depth Blood Pressure 119/83 127/85 Blood Pressure [Left Arm] Blood Pressure Mean 94 118 Blood Pressure Mean [Left Arm] Pulse Oximetry 94 97 97 Oxygen Delivery Method Room Air Room Air Room Air Sepsis Recent Fever Within 48 Hours Sepsis New/Unexplained Change in Mental Status Sepsis Action Taken by Nursing 12/06/20 14:56 12/06/20 15:00 12/06/20 15:15 Pulse Rate 84 80 Pulse Rate [Left Finger] Pulse Rate from SpO2 Sensor 88 78 Respiratory Rate 25 H 19 Respiratory Effort / Characteristics Respiratory Depth Blood Pressure 122/85 123/76 Blood Pressure [Left Arm] Blood Pressure Mean 98 81 Blood Pressure Mean [Left Arm] Pulse Oximetry 96 97 98 Oxygen Delivery Method Room Air Room Air Room Air Sepsis Recent Fever Within 48 Hours Sepsis New/Unexplained Change in Mental Status Sepsis Action Taken by Nursing 12/06/20 15:30 Pulse Rate 84 Pulse Rate [Left Finger] Pulse Rate from SpO2 Sensor 83 Respiratory Rate 20 Respiratory Effort / Characteristics Respiratory Depth Blood Pressure 115/84 Blood Pressure [Left Arm] Blood Pressure Mean 97 Blood Pressure Mean [Left Arm] Pulse Oximetry 97 Oxygen Delivery Method Room Air Sepsis Recent Fever Within 48 Hours Sepsis New/Unexplained Change in Mental Status Sepsis Action Taken by Nursing Laboratory Data Result diagrams: 12/06/20 14:10 12/06/20 14:10 Lab Results 12/06/20 12/06/20 12/06/20 Range/Units 14:10 14:10 14:10 WBC 7.24 (4.8-10.8) K/uL RBC 3.99 L (4.2-5.4) M/uL Hgb 11.9 L (12.0-16.0) g/dL Hct 36.1 L (37-47) % MCV 90.5 (80-100) fL MCH 29.8 (25-34) pg MCHC 33.0 (32-36) g/dL RDW Std Deviation 45.2 (36.4-46.3) fL RDW Coeff of Bing 13.6 (11.5-14.5) % Plt Count 262 (130-400) K/uL MPV 11.7 H (7.4-10.4) fL Immature Gran % (Auto) 0.1 % Neut % (Auto) 47.4 % Lymph % (Auto) 38.0 % [place] % (Auto) 8.7 % Eos % (Auto) 4.8 % Baso % (Auto) 1.0 % Neut # (Auto) 3.43 (1.4-6.5) K/uL Lymph # (Auto) 2.75 (1.2-3.4) K/uL [place] # (Auto) 0.63 H (0.11-0.59) K/uL Eos # (Auto) 0.35 (0-0.5) K/uL Baso # (Auto) 0.07 (0-0.2) K/uL Immature Gran # (Auto) 0.01 (0.00-0.02) K/uL PT 10.7 (9.0-12.0) Seconds INR 1.0 (0.9-1.1) APTT 24.9 (21.0-31.0) Seconds PTT Ratio 0.9 Sodium 138 (136-145) mmol/L Potassium 4.7 (3.5-5.1) mmol/L Chloride 103 (98-107) mmol/L Carbon Dioxide 29 (21-32) mmol/L Anion Gap 6.0 (3-11) BUN 11 (7-18) mg/dl Creatinine 1.01 (0.6-1.2) mg/dl Est Cr Clr Drug Dosing 60.1 ml/min Est GFR ( Amer) 67.7 Est GFR (Non-Af Amer) 58.4 BUN/Creatinine Ratio 11.3 (10-20) Glucose 169 H (70-99) mg/dl Calcium 9.7 (8.5-10.1) mg/dl Total Bilirubin 0.6 (0.2-1) mg/dl AST 21 (15-37) U/L ALT 28 (12-78) U/L Alkaline Phosphatase 88 (45-117) U/L Troponin I < 0.015 (0-0.045) ng/ml Total Protein 7.6 (6.4-8.2) gm/dl Albumin 3.8 (3.4-5.0) gm/dl Globulin 3.8 (2.5-4.0) gm/dl Albumin/Globulin Ratio 1.0 (0.9-2) Lipase 332 (73-393) U/L SARS-CoV-2 Ag (Rapid) (Negative) 12/06/20 Range/Units 15:35 WBC (4.8-10.8) K/uL RBC (4.2-5.4) M/uL Hgb (12.0-16.0) g/dL Hct (37-47) % MCV (80-100) fL MCH (25-34) pg MCHC (32-36) g/dL RDW Std Deviation (36.4-46.3) fL RDW Coeff of Bing (11.5-14.5) % Plt Count (130-400) K/uL MPV (7.4-10.4) fL Immature Gran % (Auto) % Neut % (Auto) % Lymph % (Auto) % [place] % (Auto) % Eos % (Auto) % Baso % (Auto) % Neut # (Auto) (1.4-6.5) K/uL Lymph # (Auto) (1.2-3.4) K/uL [place] # (Auto) (0.11-0.59) K/uL Eos # (Auto) (0-0.5) K/uL Baso # (Auto) (0-0.2) K/uL Immature Gran # (Auto) (0.00-0.02) K/uL PT (9.0-12.0) Seconds INR (0.9-1.1) APTT (21.0-31.0) Seconds PTT Ratio Sodium (136-145) mmol/L Potassium (3.5-5.1) mmol/L Chloride (98-107) mmol/L Carbon Dioxide (21-32) mmol/L Anion Gap (3-11) BUN (7-18) mg/dl Creatinine (0.6-1.2) mg/dl Est Cr Clr Drug Dosing ml/min Est GFR ( Amer) Est GFR (Non-Af Amer) BUN/Creatinine Ratio (10-20) Glucose (70-99) mg/dl Calcium (8.5-10.1) mg/dl Total Bilirubin (0.2-1) mg/dl AST (15-37) U/L ALT (12-78) U/L Alkaline Phosphatase (45-117) U/L Troponin I (0-0.045) ng/ml Total Protein (6.4-8.2) gm/dl Albumin (3.4-5.0) gm/dl Globulin (2.5-4.0) gm/dl Albumin/Globulin Ratio (0.9-2) Lipase (73-393) U/L SARS-CoV-2 Ag (Rapid) Negative (Negative) Administered Medications Diltiazem HCl 125 mg/ Dextrose 125 mls @ 5 mls/hr IV .Q24H [facility]; Protocol Stop: 01/05/21 14:14 Last Titration: 12/06/20 16:52 Dose: 0 mg/hr, 0 mls/hr Documented by: [id number] Cosigned by: [id number] Admin: 12/06/20 14:48 Dose: 5 mg/hr, 5 mls/hr Documented by: [id number] Cosigned by: [id number] Discontinued Medications Diltiazem HCl (Diltiazem Hcl 5 Mg/Ml 5 Ml Vial) 10 mg IV NOW STA Stop: 12/06/20 14:15 Last Admin: 12/06/20 14:47 Dose: 10 mg Documented by: [id number] Cosigned by: [id number] Sodium Chloride (Nss 1000ml) 500 mls @ 999 mls/hr IV .Q31M ONE Stop: 12/06/20 14:44 Last Infusion: 12/06/20 15:34 Dose: 0 mls/hr Documented by: [id number] Admin: 12/06/20 14:50 Dose: 999 mls/hr Documented by: [id number] Miscellaneous (Stat Iv Infusion Titration Per Protocol) 1 ea N/A NOW STA Stop: 12/06/20 14:15 Last Admin: 12/06/20 14:56 Dose: Not Given Documented by: [id number] Discharge Plan Visit Data Chief Complaint: Dizziness ED Provider: López Rodrigues Discharge Problem: Atrial fibrillation with RVR, Anemia Patient Disposition: Admitted As Inpatient Discharge Instructions Interventions: ED Discharge Assessment Last Done: 12/06/20 16:54 Discharge Problem: Anemia Qualifiers: Anemia type: unspecified type Qualified Code(s): D64.9 - Anemia, unspecified
--- NOTE | 2020-12-06 14:43 | XRay Report ---
XR chest 1V portable HISTORY: Atypical Chest Pain COMPARISON: Chest 05/27/2017. FINDINGS: The lungs are clear. The heart is borderline enlarged. This remains unchanged. No pleural e ffusions. No pneumothorax. IMPRESSION: No significant change compared to the prior study. No acute process. ACT 112: Negative or not required by law. Electronically signed by: Epi Gibbons M.D. 12/06/2020 2:42 PM
[2020-12-06 14:45] LABS: Alanine Aminotransferase 28 U/L (12-78); Albumin Level 3.8 gm/dl (3.4-5.0); Aspartate Aminotransferase 21 U/L (15-37); BUN Creatinine Ratio 11.3 (10-20); Blood Urea Nitrogen 11 mg/dl (7-18); Calcium 9.7 mg/dl (8.5-10.1); Carbon Dioxide 29 mmol/L (21-32); Chloride 103 mmol/L (98-107); Creatinine Clr Calc Pharmacy 60.1 ml/min; Est GFR (African American) 67.7; Est GFR (Non-African American) 58.4; Glucose 169 mg/dl (70-99); Lipase 332 U/L (73-393); Potassium 4.7 mmol/L (3.5-5.1); Sodium 138 mmol/L (136-145)
[2020-12-06] MEDS: dilTIAZem HCL 125 MG in DEXTROSE 5% 100 ML IV SCH ×2 (14:48→22:09)
[2020-12-06 14:52] LABS: Alkaline Phosphatase 88 U/L (45-117); Bilirubin,Total 0.6 mg/dl (0.2-1); Globulin 3.8 gm/dl (2.5-4.0); Total Protein 7.6 gm/dl (6.4-8.2); Troponin I < 0.015 ng/ml (0-0.045)
--- NOTE | 2020-12-06 16:06 | History & Physical Report ---
Date of Service December 06, 2020 Assessment & Plan (1) Atrial fibrillation with RVR: Due to the patient's recurrence of atrial fibrillation she will be admitted to the hospital. We will place her on a monitored floor for continued cardiac monitoring. We will trend her cardiac enzymes and EKGs. We will maintain her on her diltiazem drip as this has achieved good rate control. Check a magnesium as well as a TSH make any corrections to her medicines needed based on these lab results. I would check a 2D echo to assess her cardiac function as well as assess for any valvular abnormalities. We will obtain a cardiology consultation. I was able to discuss the case with Dr. Zuñiga about th e decision of cardiology and he agrees with the above-noted plan. In addition he has recommended that we resume the patient on Eliquis. Additional recommendations will be forthcoming based on her clinical status as it unfolds in the ensuing tests as they are completed. I did discuss CODE STATUS with this patient and she will be a level 1 full code. The patient will be on Eliquis no further DVT prevention is required. 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 Patient has a history of atrial fibrillation for which she underwent an ablation in October [address] [facility]. Following her ablation she did follow with Dr. Lane of [facility] physician group. The patient was previously taking flecainide as well as Eliquis but she has maintained normal sinus rhythm and has had these medicines discontinued. She has been doing well from a cardiology standpoint she has since been discharged from their practice. Earlier today shortly after eating lunch the patient was ambulating back to her work area when she developed palpitations and lightheadedness and some slight chest tightness. She says she was not short of breath. Denies any fever shakes or chills. She did not have a syncopal episode and did not fall. She presented to the emergency department for this problem where she had an EKG that showed that she had atrial fibrillation with rapid ventricular response. She underwent a chest x-ray that showed no acute cardiopulmonary process. CBC r evealed white blood cell count and platelet count were normal. Her hemoglobin and hematocrit were 11.9 and 36.1. Sodium potassium BUN and creatinine were all noted to be within normal range there is no noted elevation of her cardiac enzymes. A Covid test was negative. The treating emergency room physician initiated a Cardizem drip and he achieved good rate control and the patient's symptoms abated. We have been asked to see for admission and at the time of my exam she is resting comfortably in bed in no distress. I did question the patient on her day-to-day activities and she leads a very active lifestyle. She says with her day-to-day activities including work she does not get shortness of breath, chest pain, or palpitations. She does drink coffee but only decaffeinated beverages. Again at the time of my exam she is resting comfortably with no complaints. Allergies Allergy/AdvReac Type Severity Reaction Status Date / Time Bactrim Allergy Severe weakness Unverified 05/27/17 17:36 sulfamethoxazole Allergy Severe weakness Verified 12/06/20 15:10 trimethoprim Allergy Severe weakness Verified 12/06/20 15:10 Penicillins Allergy Unknown CHILDHOOD Verified 12/06/20 15:10 REACTION Home Medications Medication Instructions Recorded Confirmed Type losartan 25 mg PO DAILY 05/13/20 12/06/20 History metformin 1,000 mg PO BID 05/13/20 12/06/20 History rosuvastatin 10 mg PO DAILY 05/13/20 12/06/20 History diclofenac sodium 75 mg 75 mg PO BID PRN #60 tab 08/24/20 12/06/20 Rx tablet,delayed release Ozempic 0.5 mg SUBCUT WK 12/06/20 12/06/20 History acetaminophen [Tylenol Extra 1,000 mg PO Q6H PRN 12/06/20 12/06/20 History Strength] apixaban 5 mg tablet 5 mg PO BID #60 tab 12/07/20 Rx aspirin 81 mg PO QAM #30 tab 12/07/20 Rx diltiazem HCl 120 mg 120 mg PO DAILY #30 cap 12/07/20 Rx capsule,extended release 24 hr flecainide 50 mg tablet 50 mg PO Q12H #60 tab 12/07/20 Rx Past Med/Surg History Medical History (Updated 12/06/20 @ 17:55 by López Rodrigues DO) Atrial fibrillation with RVR Diabetes Endometriosis Surgical History History of abdominoplasty History of bilateral carpal tunnel release History of cholecystectomy History of hysterectomy Incisional hernia Status post breast reduction Social History Smoking Status: Never smoker Hx Alcohol Use: Yes Alcohol type: wine Hx Substance Use: No Preferred Language: Bengali Communication Ability: Effective Record Press Operator Required: No Beliefs That Will Affect Care: None marital status: Current Living Situation: Spouse Feels Safe at Home: Yes Assistive Devices: None Review of Systems Constitutional: no fever, no chills and no fatigue Eyes: no diplopia Ear, Nose, Mouth, Throat: no ear pain Respiratory: no cough and no dyspnea Cardiovascular: + chest pain, + palpitations and + lightheadedness; no syncope Gastrointestinal: no abdominal pain, no nausea and no vomiting Genitourinary: no dysuria Musculoskeletal: no back pain Integumentary: no rash Neurologic: no localized weakness Physical Exam Constitutional: well developed and well nourished; no acute distress Eyes: no conjunctival abnormality ENMT: Ears: no hearing impairment Neck: trachea midline No JVD Respiratory: normal respiratory effort, lungs clear to auscultation Cardiovascular: Rate/Rhythm: + irregularly irregular Gastrointestinal (Abdomen): Percussion/Palpation: abdomen soft; abdomen nontender Musculoskeletal: Lower extremity edema, no calf tenderness Skin: no rashes, warm and dry Neurologic: CN's II-XI intact bilaterally and moves all extremities Psychiatric: A+Ox3, euthymic affect Results & Data Results & Data ([facility]) Vital Signs (Past 12 Hours) Vital Signs Pulse Pulse Resp BP BP Pulse Ox 12/06/20 15:30 84 20 115/84 97 12/06/20 15:15 80 19 123/76 98 12/06/20 15:00 84 25 H 122/85 97 12/06/20 14:56 96 12/06/20 14:53 78 18 127/85 97 12/06/20 14:50 132 H 21 119/83 97 12/06/20 14:45 118 H 20 94 12/06/20 14:40 133 H 18 130/90 96 12/06/20 14:30 112 H 22 143/102 H 97 12/06/20 14:20 121 H 19 150/74 H 97 12/06/20 14:11 128 H 24 136/90 99 12/06/20 14:07 120 H 24 168/109 H 98 12/06/20 14:06 122 H 24 Code Status & VTE Plan VTE Prophylaxis Plan VTE Prophylaxis will be ordered: Yes Supervising Physician Co-Signing Physician Notes I personally saw and examined the patient. I verified all valdez points and agree with IZABELA Calvo with the following exceptions and/or additions: 65-year-old female presents to the ER with symptomatic atrial fibrillation. Significant history of this requiring flecainide in the past and subsequent ablation she gets symptomatic whenever she went into atrial fib with 2 episodes while on flecainide in the past. Not currently on anticoagulation after prior ablation. O/E well-appearing, heart rate irregularly irregular and tachycardic without murmur, chest CTAB, no leg edema A/P Atrial fibrillation with RVR -continue rate control strategy overnight with IV diltiazem. Previously bradycardic with metoprolol therefore suspect will need rhythm control strategy again but will defer this to cardiology as she is not currently on anticoagulation. Start anticoagulation with Eliquis. PG Care Time/CCT Total # of Minutes Spent Total Time Spent with Patient: Total time spent is greater than 50% in coordination of care (as documented) at patient's floor/unit and/or counseling patient: Coding Level of Care Code 14561 Initial Inpt Care Lvl 3 Diagnoses Atrial fibrillation with RVR I48.91
[2020-12-06] MEDS ORDERED: ONDANSETRON INJ 2 MG/ML 2 ML VIAL IV PRN (17:13)
[2020-12-06] MEDS ORDERED: ACETAMINOPHEN 500 MG TAB PO PRN (17:13)
[2020-12-06] MEDS ORDERED: NITROGLYCERIN SL 0.4 MG/TAB TAB SL PRN (17:13)
[2020-12-06] MEDS: metFORMIN HCL 500 MG TAB PO SCH (18:02)
[2020-12-06 21:11] LABS: Magnesium 1.8 mg/dl (1.8-2.4); Troponin I < 0.015 ng/ml (0-0.045)
[2020-12-06] MEDS: APIXABAN 5 MG TABLET PO SCH (21:16)
[2020-12-07 02:36] LABS: Creatine Kinase MB < 1.0 ng/ml (0.5-3.6); Troponin I < 0.015 ng/ml (0-0.045)
[2020-12-07] MEDS: metFORMIN HCL 500 MG TAB PO SCH (08:14)
[2020-12-07] MEDS: APIXABAN 5 MG TABLET PO SCH (08:15)
[2020-12-07] MEDS ORDERED: LOSARTAN POTASSIUM 25 MG TAB PO SCH (09:00)
[2020-12-07] MEDS ORDERED: ASPIRIN 81 MG ECTAB PO SCH (09:00)
[2020-12-07] MEDS ORDERED: ROSUVASTATIN CALCIUM 10 MG TAB PO SCH (09:00)
--- NOTE | 2020-12-07 09:33 | Cardiology Consultation ---
Date of Consultation December 07, 2020 Assessment & Plan (1) Atrial fibrillation with RVR: She has a history of paroxysmal atrial fibrillation for which she underwent a pulmonary vein isolation in October 2017. She did well until yesterday when she developed recurrent atrial fibrillation with RVR. She spontaneously converted to sinus rhythm in the ER after being initiated on a diltiazem drip and has maintained sinus rhythm throughout the admission. It is unclear if this is an isolated event or if she will have further arrhythmia moving forward. Given the nature of atrial fibrillation, it is likely she will go on to have further episodes. Long-term anticoagulation therapy is therefore indicated for stroke risk reduction, especially given her elevated CHADSVASc score of 2 given her diabetes and gender. She did not tolerate Xarelto in the past, but appeared to do well with Eliquis. Would recommend she continue Eliquis 5 mg twice daily for stroke risk reduction. She was previously maintained on Flecainide as well. Since this has been the first episode of the arrhythmia since her ablation 3 years ago, can hold off on restarting Flecainide at this time, but will send a prescription for the medication so that she can start it if she develops recurrent symptoms. Will also send a prescription for diltiazem that she can start with Flecainide in order to prevent high ventricular rates in atrial arrhythmia. She previously did not tolerate beta blockers, but hopefully she will do better with the calcium channel denisha as she has done well with the diltiazem drip this admission. At this point, diltiazem drip will be discontinued. Will send prescriptions for Eliquis, flecainide, and diltiazem to her pharmacy. Will also arrange follow-up in the office for reassessment in the next couple of weeks. Patient states that she would also like to arrange follow-up with Dr. Cuenca at [place], and this would also be a good option for follow-up. History of Present Illness Reason for Consultation: Atrial fibrillation Requesting Physician: Dr. Maddox History of Present Illness Mrs. Torres is a 65-betty-old female with a past medical history significant for atrial fibrillation s/p pulmonary vein isolation on 11/20/17 at [facility], type 2 diabetes, dyslipidemia, and proteinuria who was admitted yesterday due to atrial fibrillation with RVR. Patient was first diagnosed with atrial fibrillation in January 2016. She spontaneously converted to normal sinus rhythm at that time. She was initiated on metoprolol, but then went on to have further episodes of the arrhythmia with which she was rather symptomatic. She was then initiated on flecainide for a rhythm control strategy, and metoprolol was eventually discontinued due to sinus bradycardia. She ultimately decided to pursue an ablation. She underwent the ablation at [facility] with Dr. Pichardo in October 2017. She had been maintained on anticoagulation therapy with Eliquis (Xarelto was initially used but she reported bleeding gums with the medication), but she discontinued this medication after the ablation. She also discontinued flecainide. She did well with no recurrent symptoms of arrhythmia until yesterday afternoon. 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 After eating lunch yesterday, she noted dizziness and lightheadedness. She then noted a flip flopping sensation in her chest and a rapid heartbeat. She noted tightness in her chest, which radiated to her throat and fast breathing with the palpitations. When her symptoms persisted, it was recommended by her coworkers that she go to the ER for further evaluation. Upon arrival there, she was found to be in atrial fibrillation with a rapid ventricular response rate of 126 bpm. She was initiated on a diltiazem drip in the ER and spontaneously converted to sinus rhythm. It was recommended she be admitted for further observation, and she has continued on the diltiazem drip. She has also been restarted on Eliquis. She is currently resting comfortably in bed. She has had no further palpitations or lightheadedness/dizziness. She denies chest discomfort or shortness of breath. She has not noted any lower extremity edema. She denies abnormal bleeding such as melena, hematochezia, or hematuria. She denies cerebrovascular symptoms. Family history: No known premature CAD. Her father with black lung and had a myocardial infarction attributed to his pulmonary issues, at the age of 72. Her mother with pancreatic cancer. Social history: She is and lives with her . She has 2 sons, 4 grandsons, and 2 step granddaughters. 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 No tobacco use. She rarely drinks wine. Allergies Allergy/AdvReac Type Severity Reaction Status Date / Time Bactrim Allergy Severe weakness Unverified 05/27/17 17:36 sulfamethoxazole Allergy Severe weakness Verified 12/06/20 15:10 trimethoprim Allergy Severe weakness Verified 12/06/20 15:10 Penicillins Allergy Unknown CHILDHOOD Verified 12/06/20 15:10 REACTION Home Medications Medication Instructions Recorded Confirmed Type losartan 25 mg PO DAILY 05/13/20 12/06/20 History metformin 1,000 mg PO BID 05/13/20 12/06/20 History rosuvastatin 10 mg PO DAILY 05/13/20 12/06/20 History diclofenac sodium 75 mg 75 mg PO BID PRN #60 tab 08/24/20 12/06/20 Rx tablet,delayed release acetaminophen [Tylenol Extra 1,000 mg PO Q6H PRN 12/06/20 12/06/20 History Strength] semaglutide [Ozempic] 0.5 mg SUBCUT WK 12/06/20 12/06/20 History apixaban 5 mg tablet 5 mg PO BID #60 tab 12/07/20 Rx diltiazem HCl 120 mg 120 mg PO DAILY #30 cap 12/07/20 Rx capsule,extended release 24 hr flecainide 50 mg tablet 50 mg PO Q12H #60 tab 12/07/20 Rx Patient History Medical History (Updated 12/06/20 @ 17:55 by López Rodrigues DO) Atrial fibrillation with RVR Diabetes Endometriosis Surgical History History of abdominoplasty History of bilateral carpal tunnel release History of cholecystectomy History of hysterectomy Incisional hernia Status post breast reduction Social History Smoking Status: Never smoker Hx Alcohol Use: Yes Alcohol type: wine Hx Substance Use: No Preferred Language: Eritrean Communication Ability: Effective Group Practice Pediatrician Required: No Beliefs That Will Affect Care: None marital status: Current Living Situation: Spouse Feels Safe at Home: Yes Safety Concerns: Feels Safe At This Time Assistive Devices: None Review of Systems Review of Systems: All systems reviewed & are unremarkable except as noted in Subjective Physical Exam Physical Exam: Constitutional: Alert, oriented, in no acute distress HEENT: Head is atraumatic and normocephalic. EOMs intact. Sclera non-icteric. F nilesh is symmetric. No perioral cyanosis. Mucous membranes moist Neck: Supple, no JVD Pulmonary: Normal respiratory effort, clear to auscultation throughout Cardiac: Regular rate and rhythm, normal S1 and S2, no gallops, no rubs, no murmurs Extremities: No edema. No clubbing or cyanosis. Pulses 2+ and symmetric Abdomen: Normal bowel sounds, soft, non-tender, no abdominal masses palpated Skin: Normal skin color, turgor, and pigmentation. No rash or skin lesions Neurological: Oriented to person, place, and time Results & Data ([facility]) Vital Signs (Past 12 Hours) Vital Signs Temp Pulse Pulse Resp BP Pulse Ox 12/07/20 08:39 98.2 F 65 18 122/71 94 12/07/20 03:54 97.7 F 61 16 96/61 L 94 12/07/20 00:49 66 12/07/20 00:04 97.3 F L 66 16 120/65 96 Laboratory Results Laboratory Results WBC 7.24 K/uL (4.8-10.8) 12/06/20 14:10 RBC 3.99 M/uL (4.2-5.4) L 12/06/20 14:10 Hgb 11.9 g/dL (12.0-16.0) L 12/06/20 14:10 Hct 36.1 % (37-47) L 12/06/20 14:10 MCV 90.5 fL (80-100) 12/06/20 14:10 MCH 29.8 pg (25-34) 12/06/20 14:10 MCHC 33.0 g/dL (32-36) 12/06/20 14:10 RDW Std Deviation 45.2 fL (36.4-46.3) 12/06/20 14:10 RDW Coeff of Bing 13.6 % (11.5-14.5) 12/06/20 14:10 Plt Count 262 K/uL (130-400) 12/06/20 14:10 MPV 11.7 fL (7.4-10.4) H 12/06/20 14:10 Immature Gran % (Auto) 0.1 % 12/06/20 14:10 Neut % (Auto) 47.4 % 12/06/20 14:10 Lymph % (Auto) 38.0 % 12/06/20 14:10 Estill % (Auto) 8.7 % 12/06/20 14:10 Eos % (Auto) 4.8 % 12/06/20 14:10 Baso % (Auto) 1.0 % 12/06/20 14:10 Neut # (Auto) 3.43 K/uL (1.4-6.5) 12/06/20 14:10 Lymph # (Auto) 2.75 K/uL (1.2-3.4) 12/06/20 14:10 Estill # (Auto) 0.63 K/uL (0.11-0.59) H 12/06/20 14:10 Eos # (Auto) 0.35 K/uL (0-0.5) 12/06/20 14:10 Baso # (Auto) 0.07 K/uL (0-0.2) 12/06/20 14:10 Immature Gran # (Auto) 0.01 K/uL (0.00-0.02) 12/06/20 14:10 PT 10.7 Seconds (9.0-12.0) 12/06/20 14:10 INR 1.0 (0.9-1.1) 12/06/20 14:10 APTT 24.9 Seconds (21.0-31.0) 12/06/20 14:10 PTT Ratio 0.9 12/06/20 14:10 Sodium 138 mmol/L (136-145) 12/06/20 14:10 Potassium 4.7 mmol/L (3.5-5.1) 12/06/20 14:10 Chloride 103 mmol/L (98-107) 12/06/20 14:10 Carbon Dioxide 29 mmol/L (21-32) 12/06/20 14:10 Anion Gap 6.0 (3-11) 12/06/20 14:10 BUN 11 mg/dl (7-18) 12/06/20 14:10 Creatinine 1.01 mg/dl (0.6-1.2) 12/06/20 14:10 Est Cr Clr Drug Dosing 60.1 ml/min 12/06/20 14:10 Est GFR ( Amer) 67.7 12/06/20 14:10 Est GFR (Non-Af Amer) 58.4 12/06/20 14:10 BUN/Creatinine Ratio 11.3 (10-20) 12/06/20 14:10 Glucose 169 mg/dl (70-99) H 12/06/20 14:10 Calcium 9.7 mg/dl (8.5-10.1) 12/06/20 14:10 Magnesium 1.8 mg/dl (1.8-2.4) 12/06/20 20:27 Total Bilirubin 0.6 mg/dl (0.2-1) 12/06/20 14:10 AST 21 U/L (15-37) 12/06/20 14:10 ALT 28 U/L (12-78) 12/06/20 14:10 Alkaline Phosphatase 88 U/L (45-117) 12/06/20 14:10 CK-MB (CK-2) < 1.0 ng/ml (0.5-3.6) 12/07/20 02:00 Troponin I < 0.015 ng/ml (0-0.045) 12/07/20 02:00 Total Protein 7.6 gm/dl (6.4-8.2) 12/06/20 14:10 Albumin 3.8 gm/dl (3.4-5.0) 12/06/20 14:10 Globulin 3.8 gm/dl (2.5-4.0) 12/06/20 14:10 Albumin/Globulin Ratio 1.0 (0.9-2) 12/06/20 14:10 Lipase 332 U/L (73-393) 12/06/20 14:10 TSH 2.680 uIu/ml (0.300-4.500) 12/06/20 20:27 SARS-CoV-2 Ag (Rapid) Negative (Negative) 12/06/20 15:35 Diagnostic Findings EKG 12/06/20: Atrial fibrillation with a rate of 216 bpm. Left axis deviation. L VH. EKG 12/07/20: Sinus rhythm with first degree AV block 67 bpm. Left anterior fascicular block. CXR: No acute process. Telemetry: Sinus with first degree AV block. 60s. Echo: Official report pending. PG Care Time/CCT Total # of Minutes Spent Total Time Spent with Patient: Total time spent is greater than 50% in coordination of care (as documented) at patient's floor/unit and/or counseling patient: Coding Level of Care Code 29631 Inpt Consult Level 4 Diagnoses Atrial fibrillation with RVR I48.91
[2020-12-07] MEDS ORDERED: dilTIAZem HCL 120 MG CAPCR PO SCH (10:30)
--- NOTE | 2020-12-07 11:29 | Discharge Summary ---
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 Patient has a history of atrial fibrillation for which she underwent an ablation in October 2017 at [facility]. Following her ablation she did follow with Dr. Lane of [facility] physician group. The patient was previously taking flecainide as well as Eliquis but she has maintained normal sinus rhythm and has had these medicines discontinued. She has been doing well from a cardiology standpoint she has since been discharged from their practice. Earlier today shortly after eating lunch the patient was ambulating back to her work area when she developed palpitations and lightheadedness and some slight chest tightness. She says she was not short of breath. Denies any fever shakes or chills. She did not have a syncopal episode and did not fall. She presented to the emergency department for this problem where she had an EKG that showed that she had atrial fibrillation with rapid ventricular response. She underwent a chest x-ray that showed no acute cardiopulmonary process. CBC revealed white blood cell count and platelet count were normal. Her hemoglobin and hematocrit were 11.9 and 36.1. Sodium potassium BUN and creatinine were all noted to be within normal range there is no noted elevation of her cardiac enzymes. A Covid test was negative. The treating emergency room physician initiated a Cardizem drip and he achieved good rate control and the patient's symptoms abated. We have been asked to see for admission and at the time of my exam she is resting comfortably in bed in no distress. I did question the patient on her day-to-day activities and she leads a very active lifestyle. She says with her day-to-day activities including work she does not get shortness of breath, chest pain, or palpitations. She does drink coffee but only decaffeinated beverages. Again at the time of my exam she is resting comfortably with no complaints. Principal Diagnosis Atrial fibrillation Discharge Exam Constitutional: well developed and well nourished; no acute distress Eyes: no conjunctival abnormality ENMT: Ears: no hearing impairment Neck: trachea midline No JVD Respiratory: normal respiratory effort, lungs clear to auscultation Cardiovascular: Rate/Rhythm: RRR, NL S1S2 Gastrointestinal (Abdomen): Percussion/Palpation: abdomen soft; abdomen nontender Musculoskeletal: Lower extremity edema, no calf tenderness Skin: no rashes, warm and dry Neurologic: CN's II-XI intact bilaterally and moves all extremities Psychiatric: A+Ox3, euthymic affect Discharge Data Allergies Allergy/AdvReac Type Severity Reaction Status Date / Time Bactrim Allergy Severe weakness Unverified 05/27/17 17:36 sulfamethoxazole Allergy Severe weakness Verified 12/06/20 15:10 trimethoprim Allergy Severe weakness Verified 12/06/20 15:10 Penicillins Allergy Unknown CHILDHOOD Verified 12/06/20 15:10 REACTION Consultations 12/06/20 14:52 ED Decision to Admit Stat 12/06/20 17:13 Consult Cardiology Routine Hospital Course (1) Atrial fibrillation with RVR: Patient was admitted due to recurrence of atrial fibrillation she will be admitted to the hospital. Was treated with a diltiazem drip. Consulted Cardio. Recommended to resume flecainide, diltiazem and Eliquis. will followup with cardio as an outpatient. Total Time Total Time Spent Total Time Spent (In Minutes): 32 Total Time Includes: Examination of the Patient, Discharge Planning and Medication Reconciliation Discharge Plan Discharge Items Patient Disposition: Home - Self-Care Reason For Visit: AFIB Discharge Diagnosis: A. Fib Activity: Resume your previous activity Non-emergency contact: Primary Care Provider Call non-emergency contact if: you have any medication questions Follow-up/Referrals: Tacho Rincon [Primary Care Provider] - 12/13/20 11:00 am Diet: Regular Addtl Attending Provider Instructions: You have been hospitalized for an acute medical problem. During your stay at [facility], we have made an effort to correct the problem that brought you to the hospital while keeping you as comfortable as possible. Medications were used to bring your condition under control and your discharge instructions will include directions for any medications you should take after leaving the hospital. Please make sure you see your Primary Care Provider as part of your follow up plan. Pending Studies at Discharge: No Stand-Alone Forms: My [facility] [place], Smoking Cessation Medications and DC Order Prescriptions: New aspirin 81 mg Tablet,Delayed Release (Dr/Ec) 81 mg PO QAM Qty: 30 RF: 0 Continued diclofenac sodium 75 mg tablet,delayed release (DR/EC) 75 mg PO BID PRN (Reason: Pain) Qty: 60 RF: 2 Eliquis 5 mg tablet 5 mg PO BID Qty: 60 RF: 5 diltiazem HCl 120 mg capsule,extended release 24hr 120 mg PO DAILY Qty: 30 RF: 5 flecainide 50 mg tablet 50 mg PO Q12H Qty: 60 RF: 5 metformin 1,000 mg tablet 1,000 mg PO BID RF: 0 losartan 25 mg tablet 25 mg PO DAILY RF: 0 rosuvastatin 10 mg tablet 10 mg PO DAILY RF: 0 acetaminophen [Tylenol Extra Strength] 500 mg Tablet 1,000 mg PO Q6H PRN (Reason: Pain) RF: 0 Ozempic 0.25 mg or 0.5 mg(2 mg/1.5 mL) pen injector 0.5 mg SUBCUT WK RF: 0 Discharge Orders: Discharge Order (Routine); Ordered 12/07/20 Ordered By: Donaldo Pineda Admission Data Admit Date/Time: 12/06/20 15:56 Attending Provider: Donaldo Pineda Admit Provider: Jay Maddox Primary Care Provider: Tacho Rincon Other Providers: Jay Maddox ; Rambo Lane Other Interventions: Discharge Summary Assessment (RN) Last Done: 12/07/20 10:00 Coding Level of Care Code D/C Day Management >30 mins Diagnoses Atrial fibrillation with RVR I48.91
--- NOTE | 2020-12-07 18:45 | XCELERA ---
[id number]
--- NOTE | 2020-12-07 20:15 | Electrocardiogram Report ---
Test Reason : Blood Pressure : / mmHG Vent. Rate : 126 BPM Atrial Rate : 069 BPM P-R Int : 000 ms QRS Dur : 090 ms QT Int : 268 ms P-R-T Axes : 000 -40 109 degrees QTc Int : 388 ms Atrial flutter/ Atrial fibrillation with rapid ventricular response Left axis deviation Moderate voltage criteria for LVH, may be normal variant Cannot rule out Septal infarct , age undetermined Abnormal ECG When compared with ECG of 27-MAY-2017 18:29, Afib/flutter has replaced sinus rhythm HR has increased by 78 bpm Confirmed by Rambo Lane ([id number]) on 12/07/2020 8:14:56 PM Referred By: REFERRED SELF Confirmed By:Rambo Lane
--- NOTE | 2020-12-08 06:01 | Electrocardiogram Report ---
Test Reason : Blood Pressure : / mmHG Vent. Rate : 069 BPM Atrial Rate : 069 BPM P-R Int : 188 ms QRS Dur : 086 ms QT Int : 388 ms P-R-T Axes : 031 -45 036 degrees QTc Int : 415 ms Normal sinus rhythm Left anterior fascicular block Minimal voltage criteria for LVH, may be normal variant Abnormal ECG When compared with ECG of 06-DEC-2020 14:06, Sinus rhythm has replaced Atrial fibrillation Vent. rate has decreased BY [address] no longer depressed in Lateral leads Confirmed by Rambo Lane ([id number]) on 12/08/2020 6:01:18 AM Referred By: REFERRED SELF Confirmed By:Rambo Lane
--- NOTE | 2020-12-08 06:30 | Electrocardiogram Report ---
Test Reason : Blood Pressure : / mmHG Vent. Rate : 067 BPM Atrial Rate : 067 BPM P-R Int : 214 ms QRS Dur : 090 ms QT Int : 410 ms P-R-T Axes : 026 -49 062 degrees QTc Int : 433 ms Sinus rhythm with 1st degree A-V block Left anterior fascicular block Septal infarct , age undetermined Abnormal ECG When compared with ECG of 06-DEC-2020 16:50, No significant change was found Confirmed by Rambo Lane ([id number]) on 12/08/2020 6:30:15 AM Referred By: REFERRED SELF Confirmed By:Rambo Lane
== END 2020-12-07 12:44 | disposition home or self-care (01) | DRG 310 ==
LOC: ED 14:00 → INTOOBSV 15:56 → SUATTDRO 15:56 → 2S 15:56

== ENCOUNTER 2021-01-19 22:57 | Inpatient (IN) ==
[2021-01-19] MEDS ORDERED: ASPIRIN CHEW 324 MG PO STA (23:23)
[2021-01-19 23:25] LABS: Basophils # (auto) 0.11 K/uL (0-0.2); Basophils % (auto) 1.4 %; Eosinophils # (auto) 0.55 K/uL (0-0.5); Eosinophils % (auto) 7.2 %; Hematocrit (blood only) 40.3 % (37-47); Hemoglobin 13.3 g/dL (12.0-16.0); Immature Granulocytes # (auto) 0.01 K/uL (0.00-0.02); Immature Granulocytes % (auto) 0.1 %; Lymphocytes # (auto) 3.76 K/uL (1.2-3.4); Lymphocytes % (auto) 49.3 %; Mean Corpuscular Hemoglobin 30.2 pg (25-34); Mean Corpuscular Volume 91.6 fL (80-100); Mean Platelet Volume 11.7 fL (7.4-10.4); Monocytes # (auto) 0.73 K/uL (0.11-0.59); Monocytes % (auto) 9.6 %; Neutrophils # (auto) 2.47 K/uL (1.4-6.5); Neutrophils % (auto) 32.4 %; Platelet Count 288 K/uL (130-400); RDW Coefficient of Variation 13.7 % (11.5-14.5); RDW Standard Deviation 45.7 fL (36.4-46.3); White Blood Count 7.63 K/uL (4.8-10.8)
[2021-01-19 23:43] LABS: BUN Creatinine Ratio 16.7 (10-20); Blood Urea Nitrogen 17 mg/dl (7-18); Calcium 9.2 mg/dl (8.5-10.1); Carbon Dioxide 31 mmol/L (21-32); Chloride 103 mmol/L (98-107); Creatinine Clr Calc Pharmacy 57.7 ml/min; Est GFR (African American) 66.8; Est GFR (Non-African American) 57.7; Glucose 172 mg/dl (70-99); Lipase 240 U/L (73-393); Magnesium 1.5 mg/dl (1.8-2.4); Potassium 4.4 mmol/L (3.5-5.1); Sodium 138 mmol/L (136-145)
[2021-01-19 23:48] LABS: Troponin I < 0.015 ng/ml (0-0.045)
[2021-01-20] MEDS: MAGNESIUM SULFATE / D5W 1 GM/100 ML BAG IV SCH ×2 (00:11→01:18)
--- NOTE | 2021-01-20 00:17 | Emergency Department Note ---
History of Present Illness General Chief Complaint: Cardiac Assessment Stated Complaint: slow heartrate,lightheaded Time Seen by Provider: 01/19/21 23:14 History of Present Illness Provider Complaint: + palpitations and + irregular heart beat Onset (ago): 2 (2099 night of 01/18/21 was onset) day(s) Duration: + Intermittent Severity: moderate Current Pain Intensity: 0 Context: + occurred during rest Arrhythmia history: + atrial fibrillation and + on anti-coagulants (eliquis) Associated symptoms: + near-syncope; no chest pain, no shortness of breath, no syncope, no nausea and no vomiting Treatments prior to arrival: + calcium channel denisha (cardizem) and + none (flecainide) HPI narrative: 65-year-old female with history of intermittent atrial fibrillation presented to the emergency department for palpitations. Patient reports that her palpitations began at 9 PM the night before. She stated lasted approximately 15 hours until noon. She states she called her stone repairer and she was told to take an extra dose of her flecainide in the morning so she took 100 mg, 50 more milligrams than usual, of flecainide and as well as an oral dose of Cardizem. Patient states she is not sure of the strength of the Cardizem. Patient states her symptoms resolved around noon. She states in the evening tonight she started having the palpitations again so she took another 100 mg of flecainide. She states after taking the second 100 mg of flecainide in the evening she started to feel very lightheaded and like she would pass out. Patient not take any Cardizem the evening. Patient did not hit her head or fall down. She reports no chest pain or difficulty breathing. No fevers or loss of taste or smell. Patient states she sees from cardiology and is on Eliquis, she has not missed any doses of Eliquis. Home Medications Medication Instructions Recorded Confirmed Type losartan 25 mg PO DAILY 05/13/20 01/02/21 History metformin 1,000 mg PO BID 05/13/20 01/02/21 History rosuvastatin 10 mg PO DAILY 05/13/20 01/02/21 History diclofenac sodium 75 mg 75 mg PO BID PRN #60 tab 08/24/20 01/02/21 Rx tablet,delayed release Ozempic 0.5 mg SUBCUT WK 12/06/20 01/02/21 History apixaban 5 mg tablet 5 mg PO BID #60 tab 12/07/20 01/02/21 Rx diltiazem HCl 120 mg 120 mg PO DAILY PRN cap 01/02/21 History capsule,extended release 24 hr flecainide 50 mg tablet 50 mg PO Q12H PRN tab 01/02/21 History Allergies Allergy/AdvReac Type Severity Reaction Status Date / Time Bactrim Allergy Severe weakness Unverified 05/27/17 17:36 sulfamethoxazole Allergy Severe weakness Verified 01/02/21 12:55 trimethoprim Allergy Severe weakness Verified 01/02/21 12:55 Penicillins Allergy Unknown CHILDHOOD Verified 01/02/21 12:55 REACTION Past Med/Surg History Medical History (Updated 01/20/21 @ 00:18 by Vincent Jimenez) Atrial fibrillation with RVR Diabetes Endometriosis Surgical History History of abdominoplasty History of bilateral carpal tunnel release History of cholecystectomy History of hysterectomy Incisional hernia Status post breast reduction Social History Smoking Status: Never smoker Hx Alcohol Use: Yes Alcohol type: wine Hx Substance Use: No Preferred Language: Swedish Communication Ability: Effective 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: No Beliefs That Will Affect Care: None marital status: Current Living Situation: Spouse Feels Safe at Home: Yes Assistive Devices: None Review of Systems A total of 10 systems reviewed and were otherwise negative Physical Exam Vital Signs: Vital Signs - 24 hr 01/19/21 23:02 01/19/21 23:21 01/20/21 00:12 Temperature 36.2 C L Temperature Source Temporal Artery Sc an Pulse Rate 78 Pulse Rate [Apical ] 62 Respiratory Rate 18 18 Respiratory Effort / Characteristics Non-Labored Non-Labored Sponta neous Respiratory Depth Normal Normal Blood Pressure 132/81 Blood Pressure [Le ft Arm] 120/64 Blood Pressure Emiliana n 98 Blood Pressure Emiliana n [Left Arm] 82 Pulse Oximetry 96 96 96 Oxygen Delivery Me thod Room Air Room Air Room Air Sepsis Recent Feve r Within 48 Hours No Sepsis New/Unexpla ined Change in Men zane Status No Sepsis Action Take n by Nursing No Action Required Physical Exam: Physical Exam GENERAL: She is oriented to person, place, and time. She appears well-developed and well-nourished. She does not appear distressed. HENT: Exam performed. -Head: Normocephalic and atraumatic. -Right Ear: External ear normal. No mastoid tenderness. -Left Ear: External ear normal. No mastoid tenderness. -Mouth/Throat: The oropharynx is clear and moist. No trismus in the jaw. No dental abscesses or uvula swelling. No oropharyngeal exudate or tonsillar abscesses. EYES: Conjunctivae and EOM are normal. Pupils are equal, round, and reactive to light. Right eye exhibits no discharge. Left eye exhibits no discharge. No scleral icterus. NECK: Normal range of motion. Neck supple. No JVD present. No spinous process tenderness present. No carotid bruit present. No rigidity. No tracheal deviation and normal range of motion present. No Brudzinski's sign and no Kernig's sign noted. CV: Normal rate, irregular rhythm, normal heart sounds and intact distal pulses. There is no peripheral edema. Palpable radial pulses bue. PULM/CHEST: Effort normal and breath sounds normal. No respiratory distress. No stridor. She has no wheezes. She has no rales. -Chest Wall: She exhibits no tenderness. ABD: The abdomen is soft. Bowel sounds are normal. She has no distension. No mass is present. There is no tenderness. There is no rebound, no guarding, no Cagle's sign and no tenderness at McBurney's point. Rovsig negative MUSC/SKEL: Normal range of motion. There is no peripheral edema, tenderness or deformity. LYMPH: No cervical adenopathy. NEURO: She is alert and oriented to person, place, and time. She has normal strength. No cranial nerve deficit or sensory deficit. Coordination and gait normal. GCS eye subscore is 4. GCS verbal subscore is 5. GCS motor subscore is 6. Cerebellar tests wnl. SKIN: Skin is warm and dry. She is not diaphoretic. PSYCH: She has a normal mood and affect. Behavior is normal. Judgment and thought content normal. Course Course 2314: The patient was evaluated in room B12. A complete history and physical exam was performed. Cardiac monitoring: An order was placed for continuous cardiac monitoring. The monitor shows a rate of 70 with atrial flutter rhythm 0013: Vital signs stable. Labs are within normal limits with exception of magnesium of 1.5. Chest x-ray within normal limits. I thought that the patient's hypomagnesemia could be what is causing her to remain in atrial flutter/atrial fibrillation. Patient will be admitted to [facility] hospitalist service and will be evaluated by cardiology in the morning. Dr. Morejon's team notified. Magnesium repletion was started in the emergency department. Administered Medications Magnesium Sulfate/Dextrose (Magnesium Sulfate / D5w) 1 gm in 100 mls @ 100 mls/hr IV Q1H ERICK Stop: 01/20/21 01:58 Last Admin: 01/20/21 00:11 Dose: 100 mls/hr Documented by: Discontinued Medications Aspirin (Aspirin Chew 324 Mg) 324 mg PO NOW STA Stop: 01/19/21 23:24 Last Admin: 01/19/21 23:29 Dose: 324 mg Documented by: [id number] Medical Decision Making Laboratory Data Result diagrams: 01/19/21 23:16 01/19/21 23:16 Lab Results 01/19/21 01/19/21 Range/Units 23:16 23:16 WBC 7.63 (4.8-10.8) K/uL RBC 4.40 (4.2-5.4) M/uL Hgb 13.3 (12.0-16.0) g/dL Hct 40.3 (37-47) % MCV 91.6 (80-100) fL MCH 30.2 (25-34) pg MCHC 33.0 (32-36) g/dL RDW Std Deviation 45.7 (36.4-46.3) fL RDW Coeff of Bing 13.7 (11.5-14.5) % Plt Count 288 (130-400) K/uL MPV 11.7 H (7.4-10.4) fL Immature Gran % (Auto) 0.1 % Neut % (Auto) 32.4 % Lymph % (Auto) 49.3 % Mora % (Auto) 9.6 % Eos % (Auto) 7.2 % Baso % (Auto) 1.4 % Neut # (Auto) 2.47 (1.4-6.5) K/uL Lymph # (Auto) 3.76 H (1.2-3.4) K/uL Mora # (Auto) 0.73 H (0.11-0.59) K/uL Eos # (Auto) 0.55 H (0-0.5) K/uL Baso # (Auto) 0.11 (0-0.2) K/uL Immature Gran # (Auto) 0.01 (0.00-0.02) K/uL Sodium 138 (136-145) mmol/L Potassium 4.4 (3.5-5.1) mmol/L Chloride 103 (98-107) mmol/L Carbon Dioxide 31 (21-32) mmol/L Anion Gap 4.0 (3-11) BUN 17 (7-18) mg/dl Creatinine 1.02 (0.6-1.2) mg/dl Est Cr Clr Drug Dosing 57.7 ml/min Est GFR ( Amer) 66.8 Est GFR (Non-Af Amer) 57.7 BUN/Creatinine Ratio 16.7 (10-20) Glucose 172 H (70-99) mg/dl Calcium 9.2 (8.5-10.1) mg/dl Magnesium 1.5 L (1.8-2.4) mg/dl Troponin I < 0.015 (0-0.045) ng/ml Lipase 240 (73-393) U/L Imaging Data My Impression: Chest x-ray negative. Airway clear. No pneumothorax. No consolidation. No cardiomegaly or cephalization.. No free air under the diaphragm. No fractures of the skeletal structures. ECG Data Indication: palpitations Rate (beats per minute): 67 Rhythm: atrial flutter Findings: no ST depression, no ST elevation and no prolonged QT [facility] Narrative 2314: The patient was evaluated in room B12. A complete history and physical exam was performed. Cardiac monitoring: An order was placed for continuous cardiac monitoring. The monitor shows a rate of 70 with atrial flutter rhythm 0013: Vital signs stable. Labs are within normal limits with exception of magnesium of 1.5. Chest x-ray within normal limits. I thought that the patient's hypomagnesemia could be what is causing her to remain in atrial flutter/atrial fibrillation. Patient will be admitted to [facility] hospitalist service and will be evaluated by cardiology in the morning. Dr. Morejon's team notified. Magnesium repletion was started in the emergency department. Impression & Plan Hypomagnesemia Discharge Plan Visit Data Chief Complaint: Cardiac Assessment Stated Complaint: slow heartrate,lightheaded ED Provider: Vincent Jimenez Discharge Problem: Hypomagnesemia Patient Disposition: Admitted As Inpatient Forms Stand Alone Forms: [facility] Prescriptions Prescriptions: No Action diclofenac sodium 75 mg tablet,delayed release (DR/EC) 75 mg PO BID PRN (Reason: Pain) Qty: 60 RF: 2 Eliquis 5 mg tablet 5 mg PO BID Qty: 60 RF: 5 diltiazem HCl 120 mg capsule,extended release 24hr 120 mg PO DAILY PRNRF: 0 flecainide 50 mg tablet 50 mg PO Q12H PRNRF: 0 metformin 1,000 mg tablet 1,000 mg PO BID RF: 0 losartan 25 mg tablet 25 mg PO DAILY RF: 0 rosuvastatin 10 mg tablet 10 mg PO DAILY RF: 0 Ozempic 0.25 mg or 0.5 mg(2 mg/1.5 mL) pen injector 0.5 mg SUBCUT WK RF: 0 Referrals Referrals: Tacho Rincon [Primary Care Provider] -
--- NOTE | 2021-01-20 01:07 | History & Physical Report ---
Date of Service January 20, 2021 Assessment & Plan (1) Atrial flutter, paroxysmal: New onset atrial flutter with variable AV block/hypomagnesemia/PAF/hypertension/LVH- The patient will be admitted to telemetry for serial cardiac enzymes, serial EKG's, cardiac rhythm monitoring. Patient was noted to be in atrial flutter with variable block on monitor during my interview, and this was confirmed with EKG. Her persistent symptoms at this time are most likely related to being in atrial flutter as opposed to previously being in atrial fibrillation Most recent echo on 12/07/2020 showed moderate concentric LVH and no change since 01/27/2016 Continue apixaban, flecainide. Diltiazem 10 mg IV every 4 hours as needed heart rate greater than 110 If patient develops RVR over the evening, will place on amiodarone. Consult her international marketing intern Dr. Lane/Alcides. Present on Admission?: Yes (2) Paroxysmal atrial fibrillation: See above Present on Admission?: Yes (3) Hypomagnesemia: Magnesium was 1.5 upon admission. ED is written for 2 g of mag sulfate, to which we will add additional 1 g for total of 3 g IV. She reports that she does have significant diarrhea periodically when she takes her Metformin, which she did have the past 2 days, which may explain her low magnesium. Repeat laboratories in a.m. Present on Admission?: Yes (4) Hypertension: See above Present on Admission?: Yes (5) Left ventricular hypertrophy: See above Present on Admission?: Yes (6) Hyperlipidemia LDL goal <70: Continue rosuvastatin 10 mg p.o. daily Present on Admission?: Yes (7) Diabetes mellitus: Hold metformin and Ozempic. Place on Accu-Cheks before meals and at bedtime with NovoLog coverage per scale Present on Admission?: Yes History of Present Illness Chief Complaint: The patient presents to the emergency department with complaint of lightheadedness, dizziness and near syncope. Primary Care Provider: Tacho Rincon The patient is a 65-year-old female with a past medical history including paroxysmal atrial fibrillation, LVH, anemia, atrial fibrillation with RVR, status post cardiac ablation, and osteoarthritis. She was most recently mid to [facility] from 12/06-12/07/2020 with atrial fibrillation with RVR. She is status post ablation for atrial fibrillation on 11/[address] [facility]. She has been maintained on flecainide and Eliquis. She noted the symptoms and palpitations last evening, and persisted into the morning. She did take an additional flecainide as directed by her cardiologists Dr. Lane/Alcides when she called their office this morning, with resolution of her symptoms around noon. This evening, she started having the palpitations again, took another 100 mg of flecainide, and when she began to feel like she was going to pass out, she presented to the ED for assessment. Allergies Allergy/AdvReac Type Severity Reaction Status Date / Time sulfamethoxazole Allergy Severe weakness Verified 01/02/21 12:55 Penicillins Allergy Unknown CHILDHOOD Verified 01/02/21 12:55 REACTION Home Medications Medication Instructions Recorded Confirmed Type losartan 25 mg PO DAILY 05/13/20 01/20/21 History rosuvastatin 10 mg PO DAILY 05/13/20 01/20/21 History diclofenac sodium 75 mg 75 mg PO BID PRN #60 tab 08/24/20 01/20/21 Rx tablet,delayed release Ozempic 0.5 mg SUBCUT WK 12/06/20 01/20/21 History apixaban 5 mg tablet 5 mg PO BID #60 tab 12/07/20 01/20/21 Rx diltiazem HCl 120 mg 120 mg PO DAILY PRN cap 01/02/21 01/20/21 History capsule,extended release 24 hr flecainide 50 mg tablet 100 mg PO Q12H tab 01/02/21 01/20/21 History metformin 1,000 mg PO QAM 01/20/21 01/20/21 History Past Med/Surg History Medical History (Updated 01/20/21 @ 01:45 by Primitivo Chung MD) Atrial fibrillation with RVR Diabetes mellitus Endometriosis Hyperlipidemia LDL goal <70 Hypertension Surgical History History of abdominoplasty History of bilateral carpal tunnel release History of cholecystectomy History of hysterectomy Incisional hernia Status post breast reduction Social History Smoking Status: Never smoker Hx Alcohol Use: Yes Alcohol type: wine Hx Substance Use: No Preferred Language: Belarusian Communication Ability: Effective Tennis Coach Required: No Beliefs That Will Affect Care: None marital status: Current Living Situation: Spouse Feels Safe at Home: Yes Assistive Devices: None Review of Systems Review of Systems: The patient denies chest pain, cough, lower extremity swelling, sore throat, fevers, chills, sweats, nausea, vomiting, diarrhea , constipation, abdominal pain, pelvic pain, blood in urine or stool, dysuria, urinary frequency or urgency, headache, memory loss, loss of consciousness, rash, abnormal bruising or bleeding, imbalance, focal or generalized weakness, numbness or tingling in arms or legs, generalized arthralgias or myalgias, back or neck pain, or night sweats. The review of systems is otherwise negative other than for that already noted above, and at least 10 systems have been reviewed. Physical Exam Physical Exam: The patient is awake, alert and oriented 3, well developed and well nourished, normocephalic and atraumatic, lying in bed and in no acute distress. HEENT--PERRL, EOMI, mucous membranes and oropharynx dry. Neck--supple. No JVD. No bruits. Thyroid normal, trachea midline, no adenopathy. Heart--regularly irregular. No murmurs, rubs or gallops. Lungs--clear bilaterally, no respiratory distress, no accessory muscle use. Abdomen--normal bowel sounds and soft. Nontender. Nondistended. Extremities--no cyanosis or clubbing. No edema. Dermatologic--normal skin turgor, normal color, no abnormal lymph nodes, no rash. Neurologic--cranial nerves II through XII grossly intact. Rheumatologic--normal range of motion. Psychiatric--normal affect. Results & Data Results & Data ([facility]) Vital Signs (Past 12 Hours) Vital Signs Temp Pulse Pulse Resp BP BP Pulse Ox 01/20/21 00:12 62 18 120/64 96 01/19/21 23:21 96 01/19/21 23:02 97.2 F L 78 18 132/81 96 Laboratory Results Laboratory Results WBC 7.63 K/uL (4.8-10.8) 01/19/21 23:16 RBC 4.40 M/uL (4.2-5.4) 01/19/21 23:16 Hgb 13.3 g/dL (12.0-16.0) 01/19/21 23:16 Hct 40.3 % (37-47) 01/19/21 23:16 MCV 91.6 fL (80-100) 01/19/21 23:16 MCH 30.2 pg (25-34) 01/19/21 23:16 MCHC 33.0 g/dL (32-36) 01/19/21 23:16 RDW Std Deviation 45.7 fL (36.4-46.3) 01/19/21 23:16 RDW Coeff of Bing 13.7 % (11.5-14.5) 01/19/21 23:16 Plt Count 288 K/uL (130-400) 01/19/21 23:16 MPV 11.7 fL (7.4-10.4) H 01/19/21 23:16 Immature Gran % (Auto) 0.1 % 01/19/21 23:16 Neut % (Auto) 32.4 % 01/19/21 23:16 Lymph % (Auto) 49.3 % 01/19/21 23:16 [place] % (Auto) 9.6 % 01/19/21 23:16 Eos % (Auto) 7.2 % 01/19/21 23:16 Baso % (Auto) 1.4 % 01/19/21 23:16 Neut # (Auto) 2.47 K/uL (1.4-6.5) 01/19/21 23:16 Lymph # (Auto) 3.76 K/uL (1.2-3.4) H 01/19/21 23:16 [place] # (Auto) 0.73 K/uL (0.11-0.59) H 01/19/21 23:16 Eos # (Auto) 0.55 K/uL (0-0.5) H 01/19/21 23:16 Baso # (Auto) 0.11 K/uL (0-0.2) 01/19/21 23:16 Immature Gran # (Auto) 0.01 K/uL (0.00-0.02) 01/19/21 23:16 Sodium 138 mmol/L (136-145) 01/19/21 23:16 Potassium 4.4 mmol/L (3.5-5.1) 01/19/21 23:16 Chloride 103 mmol/L (98-107) 01/19/21 23:16 Carbon Dioxide 31 mmol/L (21-32) 01/19/21 23:16 Anion Gap 4.0 (3-11) 01/19/21 23:16 BUN 17 mg/dl (7-18) 01/19/21 23:16 Creatinine 1.02 mg/dl (0.6-1.2) 01/19/21 23:16 Est Cr Clr Drug Dosing 57.7 ml/min 01/19/21 23:16 Est GFR ( Amer) 66.8 01/19/21 23:16 Est GFR (Non-Af Amer) 57.7 01/19/21 23:16 BUN/Creatinine Ratio 16.7 (10-20) 01/19/21 23:16 Glucose 172 mg/dl (70-99) H 01/19/21 23:16 Calcium 9.2 mg/dl (8.5-10.1) 01/19/21 23:16 Magnesium 1.5 mg/dl (1.8-2.4) L 01/19/21 23:16 Troponin I < 0.015 ng/ml (0-0.045) 01/19/21 23:16 Lipase 240 U/L (73-393) 01/19/21 23:16 COVID-19 Eval Order Covid19 IDNow [facility] 01/20/21 00:05 SARS-CoV-2, RNA, NAAT NEGATIVE (NEGATIVE) 01/20/21 00:05 Code Status & VTE Plan Code Status Full code VTE Prophylaxis Plan VTE Prophylaxis will be ordered: Yes PG Care Time/CCT Total # of Minutes Spent Total Time Spent with Patient: Total time spent is greater than 50% in coordination of care (as documented) at patient's floor/unit and/or counseling patient: Coding Level of Care Code 26949 Initial Inpt Care Lvl 3 Diagnoses Atrial flutter, paroxysmal I48.92 Paroxysmal atrial fibrillation I48.0 Hypomagnesemia E83.42 Hypertension I10 Left ventricular hypertrophy I51.7 Hyperlipidemia LDL goal <70 E78.5 Diabetes mellitus E11.9
[2021-01-20] MEDS ORDERED: GLUCOSE 10 TABS/TUBE PO PRN (02:24)
[2021-01-20] MEDS ORDERED: dilTIAZem HCl 5 MG/ML 5 ML VIAL IV PRN (02:24)
[2021-01-20] MEDS ORDERED: NSS + 20MEQ KCL 20 MEQ/1,000 ML BAG IV SCH (02:24)
[2021-01-20] MEDS ORDERED: GLUCOSE 40% GEL 15 GM TUBE PO PRN (02:24)
[2021-01-20] MEDS ORDERED: MAGNESIUM SULFATE / D5W 1 GM/100 ML BAG IV ONE (02:24)
[2021-01-20] MEDS ORDERED: DEXTROSE 50% 50 ML SYRINGE IV PRN (02:24)
[2021-01-20] MEDS ORDERED: GLUCAGON FOR INJ 1 MG VIAL SQ PRN (02:24)
[2021-01-20] MEDS ORDERED: ONDANSETRON INJ 2 MG/ML 2 ML VIAL IV PRN (02:24)
[2021-01-20] MEDS ORDERED: CARBOHYDRATES FOR HYPOGLYCEMIA PO PRN (02:24)
[2021-01-20] MEDS ORDERED: ACETAMINOPHEN 325 MG TAB PO PRN (02:24)
[2021-01-20] MEDS: APIXABAN 5 MG TABLET PO SCH ×2 (03:02→07:55)
[2021-01-20 06:09] LABS: Albumin Level 3.2 gm/dl (3.4-5.0); BUN Creatinine Ratio 16.4 (10-20); Blood Urea Nitrogen 14 mg/dl (7-18); Calcium 8.7 mg/dl (8.5-10.1); Carbon Dioxide 28 mmol/L (21-32); Chloride 106 mmol/L (98-107); Creatinine Clr Calc Pharmacy 71.6 ml/min; Est GFR (African American) 85.8; Glucose 172 mg/dl (70-99); Potassium 4.7 mmol/L (3.5-5.1); Sodium 140 mmol/L (136-145)
[2021-01-20 06:14] LABS: Phosphorus 3.2 mg/dl (2.5-4.9); Troponin I < 0.015 ng/ml (0-0.045)
[2021-01-20 06:17] LABS: Estimated Average Glucose 171 mg/dl; Hemoglobin A1C 7.6 % (4.5-5.6)
[2021-01-20] MEDS: INSULIN ASPART 100 UNITS/ML 3 ML PEN SC SCH ×2 (07:54→11:37)
--- NOTE | 2021-01-20 08:29 | XRay Report ---
XR chest 2V PA/lateral HISTORY: 65 years-old Female Chest Pain acute atypical chest pain COMPARISON: Chest radiograph 12/06/2020 TECHNIQUE: PA and lateral views of the chest FINDINGS: Cardiomediastinal and hilar silhouettes are within normal limits. No pneumothorax, pleural effusion, airspace consolidation or overt pulmonary edema. Degenerative changes of the shoulders and spine. IMPRESSION: No acute process. ACT 112: Negative or not required by law. The above report was generated using voice recognition software. It may contain grammatical, syntax o r spelling errors. Electronically signed by: Bro Mello M.D. 01/20/2021 8:27 AM
[2021-01-20] MEDS ORDERED: ROSUVASTATIN CALCIUM 10 MG TAB PO SCH (09:00)
[2021-01-20] MEDS ORDERED: FLECAINIDE ACETATE 100 MG TABLET PO SCH (09:00)
[2021-01-20] MEDS ORDERED: LOSARTAN POTASSIUM 25 MG TAB PO SCH (09:00)
--- NOTE | 2021-01-20 10:42 | Discharge Summary ---
Date of Service January 20, 2021 Admission HPI Per Admitting Provider The patient is a 65-year-old female with a past medical history including paroxysmal atrial fibrillation, LVH, anemia, atrial fibrillation with RVR, status post cardiac ablation, and osteoarthritis. She was most recently mid to [facility] from 12/06-12/07/2020 with atrial fibrillation with RVR. She is status post ablation for atrial fibrillation on 11/16 at [facility]. She has been maintained on flecainide and Eliquis. She noted the symptoms and palpitations last evening, and persisted into the morning. She did take an additional flecainide as directed by her cardiologists Dr. Lane/Alcides when she called their office this morning, with resolution of her symptoms around noon. This evening, she started having the palpitations again, took another 100 mg of flecainide, and when she began to feel like she was going to pass out, she presented to the ED for assessment. Admission Exam Per Admitting Provider Vertigo secondary to hypertensive emergency complicated by chronic hypertension and medication noncompliance Principal Diagnosis Paroxysmal atrial fibrillation despite prior ablation complicated by diabetes, LVH, hypomagnesemia Discharge Exam General: No acute distress HEENT: Normocephalic atraumatic Neck: No significant lymphadenopathy, trachea midline, normal to visual inspection Cardiac: Regular rate and rhythm, normal S1, normal S2, I did not appreciated any significant murmurs rubs or gallops, I did not appreciate any significant pedal edema, No calf tenderness, capillary refill is less than 3 seconds Respiratory: Clear to auscultation bilaterally with symmetrical chest rise, I did not appreciate any significant wheezes, rales, rhonchi, no increased work of breathing GI: Normal bowel sounds, soft, nontender in all 4 quadrants, nondistended MSK: No sensory or motor changes, moves all extremities without issue, extremities are warm and well-perfused Skin: [place], clean, dry, intact. Neuro: Alert and oriented x4 Psych: Calm, cooperative, logical thought process Discharge Data Allergies Allergy/AdvReac Type Severity Reaction Status Date / Time sulfamethoxazole Allergy Severe weakness Verified 01/02/21 12:55 Penicillins Allergy Unknown CHILDHOOD Verified 01/02/21 12:55 REACTION Consultations 01/19/21 23:59 ED Decision to Admit Stat 01/20/21 02:24 Consult Cardiology Routine Consult Case Management - Discharge Planning Routine Hospital Course (1) Atrial flutter, paroxysmal: 65-year-old female with a past medical history of atrial fibrillation status post catheter ablation in October, left ventricular hypertrophy, anemia, and osteoarthritis, presented for feelings of syncope subsequently diagnosed with atrial flutter. #Paroxysmal atrial flutter New onset atrial flutter with variable AV block/hypomagnesemia/paroxysmal atrial fibrillation/hypertension/left ventricular hypertrophy. Most recent echo from 12/07/2020 demonstrated moderate concentric LVH and no change since 01/27/2016. Patient with a recent history of catheter ablation on 11/16/2020 and an episode of A. fib with RVR 12/07/2020. Patient endorsed 2 episodes of palpitations prior to admission first episode was relieved with additional dose of flecainide, second episode resulted in feelings of syncope after dose of flecainide requiring her to present to the hospital. On presentation to the hospital appropriate work-up was performed was determined that she was having atrial fibr illation with a variable block. Given the persistence of her symptoms it is most likely related to the patient was admitted to telemetry service and cardiology was consulted. Cardiology recommending increasing the patient's home flecainide to 150 mg twice daily. On the day of discharge patient was symptom- free, but specifically denying chest pressure, chest pain, shortness of breath, generalized malaise. -Continue apixaban 5 mg twice daily -Cardiology consulted recommended -Increase flecainide to 150 mg twice daily #Paroxysmal atrial fibrillation As above #Hypomagnesemia History of diarrhea associated with Metformin certainly could explain magnesium of 1.5 on admission, given 3 g of IV mag sulfate. Repeat magnesium 2.1. Recently transition to Ozempic was outpatient, hopefully diarrhea will resolve with this medication. #Hypertension As above -Losartan 25 mg p.o. daily #LVH As above #Hyperlipidemia LDL goal less than 70 -Continue rosuvastatin 10 mg p.o. daily #Diabetes mellitus Placed on SSI while hospitalized, on discharge, DC Metformin, continue Ozempic FENa: Heart healthy type II diabetic diet Code Status: Full code DVT PPX: Chronically anticoagulated with apixaban PT/OT: Not indicated Dispo: Home Ken Camacho MD PGY 2, FCM This chart was completed utilizing [employer] voice recognition software. Grammatical errors, random word insertions, pronoun errors, and in complete sentences are an occasional consequence of the system. Any questions or concerns about the content, text, or information contained within the body of this dictation should be addressed directly to the physician for clarification. (2) Paroxysmal atrial fibrillation: (3) Hypomagnesemia: (4) Hypertension: (5) Left ventricular hypertrophy: See above (6) Hyperlipidemia LDL goal <70: (7) Diabetes mellitus: Total Time Total Time Spent Total Time Spent (In Minutes): <30 Discharge Plan Discharge Items Patient Disposition: Home - Self-Care Reason For Visit: ATRIAL FLUTTER, DIZZINESS Discharge Diagnosis: Paroxysmal atrial fibrillation despite prior ablation complicated by diabetes, LVH, hypomagnesemia Activity: Resume your previous activity Non-emergency contact: Primary Care Provider Call non-emergency contact if: you have any medication questions, your symptoms worsen and your temperature is above 101.5 Follow-up/Referrals: Tacho Rincon [Primary Care Provider] - (please call and make a follow up apt.) Diet: Carb Consistent or DM2 and Heart Healthy Addtl Attending Provider Instructions: Care instructions: You were admitted to [facility] for treatment of atrial fibrillation with rapid ventricular response. You were admitted to the hospital and monitored overnight. Cardiology was consulted recommending increasing her flecainide to 150 mg twice daily. On the day of discharge he was symptom-free and reporting that you are back to baseline. A discharge summary will be sent to your primary care physician to ensure continuity of care. Please bring this discharge summary with you to your next office appointment so that your provider can review it at that time. Please increase your daily flecainide: Flecainide: 150 mg twice daily -Currently you have 50 mg tablets and take 2 in the AM. You can increase your dosage to taking 3 in the AM and 3 in the PM until your current prescription is complete -A new prescription has been called into the [facility] in [place] Follow-up appointments: - Keep all your follow-up appointments as already scheduled. If you cannot make an appointment, notify your provider. - Please call to request a follow-up appointment with your primary care physician within one week of discharge. Please let us know if you are unable to obtain an appointment Medications: - Your medication list has been reviewed and reconciled upon discharge to ensure accuracy and continuity of care. - You are provided with a list of all your current medications at this time. Please review this list closely and make note of any changes. - Please take all of your medications exactly as prescribed. - Tell your primary care provider if you cannot afford your medications. - Call your primary care provider if you are having any side effects or any other problems. - Call your primary care provider before taking any over the counter medications or supplements, including herbals and vitamins, because some of these may interact with your current medications and/or make your symptoms worse. Symptoms: Please call your primary care provider for symptoms including, but not limited to: fevers (temperatures greater than 100.4), chills, intractable nausea or vomiting, diarrhea, rash, shortness of breath, bleeding, pain, or if you experience any worsening of the symptoms that brought you to the hospital. For EMERGENCY and VERY SERIOUS health-related issues, such as chest pain, shortness of breath, or sudden onset of the symptoms that brought you to the hospital, you may need to call 911 or go directly to the Emergency Room It has been our privilege to take care of you during your hospital stay. And Above All Else Feel Better! Best Wishes, Ken Camacho MD PGY2 Resident, Family & Community Medicine [facility] FCM Residency at [facility] - [address], [address] : [place] [address] Pending Studies at Discharge: No Stand-Alone Forms: My [facility], Smoking Cessation Medications and DC Order Prescriptions: New flecainide 100 mg Tablet 150 mg PO Q12H 30 Days Qty: 90 RF: 0 Continued diclofenac sodium 75 mg tablet,delayed release (DR/EC) 75 mg PO BID PRN (Reason: Pain) Qty: 60 RF: 2 Eliquis 5 mg tablet 5 mg PO BID Qty: 60 RF: 5 diltiazem HCl 120 mg capsule,extended release 24hr 120 mg PO DAILY PRN (Reason: afib) RF: 0 losartan 25 mg tablet 25 mg PO DAILY RF: 0 rosuvastatin 10 mg tablet 10 mg PO DAILY RF: 0 Ozempic 0.25 mg or 0.5 mg(2 mg/1.5 mL) pen injector 0.5 mg SUBCUT WK RF: 0 Changed flecainide 50 mg tablet 150 mg PO Q12H Qty: 0 RF: 0 Discontinued metformin 500 mg tablet extended release 24 hr 1,000 mg PO QAM RF: 0 Discharge Orders: Discharge Order (Routine); Ordered 01/20/21 Ordered By: Ken Camacho Admission Data Admit Date/Time: 01/20/21 01:06 Attending Provider: Primitivo Chung Admit Provider: Primitivo Chung Primary Care Provider: Tacho Rincon Other Providers: Primitivo Chung ; Ayush Mcgrath Other Interventions: Discharge Summary Assessment (RN) Last Done: 01/20/21 11:24 Supervising Physician Co-Signing Physician Notes I personally examined the patient and verified all valdez points of history and exam, discussed case, and agree with decision making with Dr Camacho. Feeling better and would like to go home. Vitals noted, in general she is in no distress. HEENT normocephalic atraumatic mucous membranes moist. Breathing unlabored no accessory muscle use good effort. Skin shows no rashes no pallor or icterus. A flutternow stable for home. Otherwise as above. Resident Activity Tracking Resident Involvement: Resident Care Provided Care Provided: Adult Hospital Medicine
--- NOTE | 2021-01-20 10:55 | Cardiology Consultation ---
Date of Consultation January 20, 2021 Assessment & Plan (1) Paroxysmal atrial fibrillation: She had an extended period without symptoms subsequent to her initial catheter based treatment in 2017. However, she is not having frequent recurrences despite antiarrhythmic therapy. She is actually scheduled for appointment at [facility] this week to discuss a repeat catheter ablation. We also discussed additional options for treatment which would include a switch in antiarrhythmic medications or possibly a switch to rate control strategy with implantation of a pacemaker. Given the possibility of a repeat pulmonary vein isolation in the next few weeks it seems reasonable to continue her on her current antiarrhythmic. We could increase the dose to 150 mg twice daily. She will continue on her systemic anticoagulation. Traditionally patient is on flecainide would take rate control medications as well, but she has had significant bradycardia with metoprolol and is known to have an element of bradycardia at baseline with 1st degree AV block. Continue apixaban (2) Atrial flutter, paroxysmal: It is possible that she began in atrial fibrillation in the rhythm organized into what appeared to be a typical atrial flutter. Flecainide has been known to cause atypical atrial flutters as well. However, I think we can continue her antiarrhythmic therapy currently. Perhaps creation of bidirectional block through the caval tricuspid isthmus at the time of any repeat ablation would be indicated. (3) Hypomagnesemia: Very mildly low. I think she could be safely discharged today with an increase in her flecainide dose to 150 mg twice daily. She can continue to take diltiazem on a p.r.n. basis if she has arrhythmia. We will await the results of her consultation at [facility] on Friday to see if alternative strategy is required. History of Present Illness Reason for Consultation: Atrial fibrillation Requesting Physician: Juliet Attending Physician: Primitivo Chung MD History of Present Illness The patient is a 65-year-old woman with longstanding history of paroxysmal atrial fibrillation status post pulmonary vein isolation in 2016. She was admitted to the hospital earlier this year with recurrent episode of atrial fibrillation. She was started on low-dose flecainide at that time and her dose was increased in the outpatient setting due to recurrent symptoms of atrial fibrillation. Two nights ago she noticed the onset of her typical palpitations and rapid heartbeat that she associates with atrial fibrillation. She took her medicines as scheduled including a dose of diltiazem. The following morning she still noticed the arrhythmia and took another dose of diltiazem and her usual flecainide. Later in the day she felt like her heart rate improved and she thought perhaps she had converted out of atrial fibrillation. However, later in the evening she began to experience symptoms of dizziness and vertigo in addit ion to recurrent high heart rates and she presented to the emergency room for evaluation. She was discovered to have what appears to be in atrial flutter. She was admitted for observation but converted back to sinus rhythm spontaneously within couple of hours of arriving at the hospital. This morning she feels quite well. She is anxious for discharge. She has otherwise been feeling well recently. Perhaps more fatigued than usual. She has had additional episodes of atrial fibrillation by her report lasting up to 4 hours last week., symptoms with her atrial fibrillation include fatigue. The dizziness she experienced last night is uncommon. No actual syncope. No symptoms of chest discomfort no limiting dyspnea. She has been ambulatory around her room this morning without symptom. Allergies Allergy/AdvReac Type Severity Reaction Status Date / Time sulfamethoxazole Allergy Severe weakness Verified 01/02/21 12:55 Penicillins Allergy Unknown CHILDHOOD Verified 01/02/21 12:55 REACTION Home Medications Medication Instructions Recorded Confirmed Type losartan 25 mg PO DAILY 05/13/20 01/20/21 History rosuvastatin 10 mg PO DAILY 05/13/20 01/20/21 History diclofenac sodium 75 mg 75 mg PO BID PRN #60 tab 08/24/20 01/20/21 Rx tablet,delayed release Ozempic 0.5 mg SUBCUT WK 12/06/20 01/20/21 History apixaban 5 mg tablet 5 mg PO BID #60 tab 12/07/20 01/20/21 Rx diltiazem HCl 120 mg 120 mg PO DAILY PRN cap 01/02/21 01/20/21 History capsule,extended release 24 hr flecainide 50 mg tablet 100 mg PO Q12H tab 01/02/21 01/20/21 History flecainide 150 mg PO Q12H 30 Days #90 tab 01/20/21 Rx metformin 1,000 mg PO QAM 01/20/21 01/20/21 History Patient History Medical History Atrial fibrillation with RVR Diabetes mellitus Endometriosis Hyperlipidemia LDL goal <70 Hypertension Surgical History History of abdominoplasty History of bilateral carpal tunnel release History of cholecystectomy History of hysterectomy Incisional hernia Status post breast reduction Social History Smoking Status: Never smoker Hx Alcohol Use: Yes Alcohol type: wine Hx Substance Use: No Preferred Language: Bengali Communication Ability: Effective Service Order Dispatcher Required: No Beliefs That Will Affect Care: None marital status: Current Living Situation: Spouse Feels Safe at Home: Yes Assistive Devices: None Review of Systems Review of Systems: All systems reviewed & are unremarkable except as noted in HPI & below Physical Exam Physical Exam: She is alert and oriented x3. Mood affect appear normal. She answered all questions appropriately. HEENT: Sclerae are anicteric. Pupils are equal and reactive to light and accommodation. Extraocular movements were intact. Neuro: Cranial nerves intact Neck: Examination of the submandibular region did not reveal any significant lymphadenopathy. Carotids are palpable bilaterally and free of bruits on auscultation. There was no evidence of jugular venous distention. The thyroid was not enlarged. Lungs: Lungs are clear to auscultation bilaterally. There are no rales wheezes or rhonchi. She has normal respiratory effort without use of accessory muscles. There is normal pulmonary excursion. Cardiac: The rhythm was regular. S1 and S2 were normal. There are no murmurs on examination. The PMI was not markedly displaced on palpation. Abdomen: The abdomen was soft and nontender. Extremities: Patient has bilateral radial pulses that are equal in intensity. There is no evidence cyanosis or clubbing. There was no evidence of significant peripheral edema bilaterally. Skin: There are no rashes noted on examination today. Results & Data ([facility]) Vital Signs (Past 12 Hours) Vital Signs Temp Pulse Pulse Resp BP BP Pulse Ox 01/20/21 08:11 36.9 C 70 18 118/57 L 95 01/20/21 08:00 67 01/20/21 05:09 62 01/20/21 02:07 36.7 C 62 16 132/65 97 01/20/21 00:12 62 18 120/64 96 01/19/21 23:21 96 01/19/21 23:02 36.2 C L 78 18 132/81 96 Laboratory Results Abnormal Lab Results 01/19/21 01/19/21 01/20/21 23:16 23:16 00:05 WBC 7.63 RBC 4.40 Hgb 13.3 Hct 40.3 MCV 91.6 MCH 30.2 MCHC 33.0 RDW Std Deviation 45.7 RDW Coeff of Bing 13.7 Plt Count 288 MPV 11.7 H Immature Gran % (Auto) 0.1 Neut % (Auto) 32.4 Lymph % (Auto) 49.3 Luna % (Auto) 9.6 Eos % (Auto) 7.2 Baso % (Auto) 1.4 Neut # (Auto) 2.47 Lymph # (Auto) 3.76 H Luna # (Auto) 0.73 H Eos # (Auto) 0.55 H Baso # (Auto) 0.11 Immature Gran # (Auto) 0.01 Sodium 138 Potassium 4.4 Chloride 103 Carbon Dioxide 31 Anion Gap 4.0 BUN 17 Creatinine 1.02 Est Cr Clr Drug Dosing 57.7 Est GFR ( Amer) 66.8 Est GFR (Non-Af Amer) 57.7 BUN/Creatinine Ratio 16.7 Glucose 172 H POC Glucose Estimat Average Glucose Hemoglobin A1c Calcium 9.2 Phosphorus Magnesium 1.5 L Troponin I < 0.015 Albumin Lipase 240 COVID-19 Eval Order Covid19 [facility] SARS-CoV-2, RNA, NAAT 01/20/21 01/20/21 01/20/21 00:05 05:07 05:07 WBC RBC Hgb Hct MCV MCH MCHC RDW Std Deviation RDW Coeff of Bing Plt Count MPV Immature Gran % (Auto) Neut % (Auto) Lymph % (Auto) Luna % (Auto) Eos % (Auto) Baso % (Auto) Neut # (Auto) Lymph # (Auto) Luna # (Auto) Eos # (Auto) Baso # (Auto) Immature Gran # (Auto) Sodium 140 Potassium 4.7 Chloride 106 Carbon Dioxide 28 Anion Gap 6.0 BUN 14 Creatinine 0.83 Est Cr Clr Drug Dosing 71.6 Est GFR ( Amer) 85.8 Est GFR (Non-Af Amer) 74.0 BUN/Creatinine Ratio 16.4 Glucose 172 H POC Glucose Estimat Average Glucose 171 Hemoglobin A1c 7.6 H Calcium 8.7 Phosphorus 3.2 Magnesium Troponin I < 0.015 Albumin 3.2 L Lipase COVID-19 Eval Order SARS-CoV-2, RNA, NAAT NEGATIVE 01/20/21 01/20/21 07:28 08:45 WBC RBC Hgb Hct MCV MCH MCHC RDW Std Deviation RDW Coeff of Bing Plt Count MPV Immature Gran % (Auto) Neut % (Auto) Lymph % (Auto) Luna % (Auto) Eos % (Auto) Baso % (Auto) Neut # (Auto) Lymph # (Auto) Luna # (Auto) Eos # (Auto) Baso # (Auto) Immature Gran # (Auto) Sodium Potassium Chloride Carbon Dioxide Anion Gap BUN Creatinine Est Cr Clr Drug Dosing Est GFR ( Amer) Est GFR (Non-Af Amer) BUN/Creatinine Ratio Glucose POC Glucose 164 H Estimat Average Glucose Hemoglobin A1c Calcium Phosphorus Magnesium 2.1 Troponin I Albumin Lipase COVID-19 Eval Order SARS-CoV-2, RNA, NAAT Diagnostic Findings 12/07/2020: Normal LV systolic function. Moderate LVH. No significant valvular abnormalities. ECG Additional Comments: I reviewed the source images were EKGs obtained at the time of admission. Atrial flutter with controlled ventricular response. QRS duration 94 milliseconds. PG Care Time/CCT Total # of Minutes Spent Total Time Spent with Patient: Total time spent is greater than 50% in coordination of care (as documented) at patient's floor/unit and/or counseling patient: Coding Level of Care Code 25613 Office/OBS Consult Lvl 4 Diagnoses Paroxysmal atrial fibrillation I48.0 Atrial flutter, paroxysmal I48.92 Hypomagnesemia E83.42
--- NOTE | 2021-01-20 13:10 | Electrocardiogram Report ---
Test Reason : Blood Pressure : / mmHG Vent. Rate : 074 BPM Atrial Rate : 249 BPM P-R Int : 000 ms QRS Dur : 094 ms QT Int : 428 ms P-R-T Axes : 000 -47 046 degrees QTc Int : 475 ms Atrial flutter with variable A-V block Left axis deviation Minimal voltage criteria for LVH, may be normal variant Poor R wave progression, consider anterior WA vs. lead placement vs. LVH Abnormal ECG When compared with ECG of 19-JAN-2021 23:08, (unconfirmed) Atrial flutter has replaced Sinus rhythm Confirmed by Subhash Mcgrath ([id number]) on 01/20/2021 1:10:27 PM Referred By: REFERRED SELF Confirmed By:Harjeet Mcgrath
--- NOTE | 2021-01-20 13:17 | Electrocardiogram Report ---
Test Reason : Blood Pressure : / mmHG Vent. Rate : 067 BPM Atrial Rate : 067 BPM P-R Int : 212 ms QRS Dur : 096 ms QT Int : 410 ms P-R-T Axes : 080 -41 076 degrees QTc Int : 433 ms Poor data quality, interpretation may be adversely affected Atrial flultter with variable conduction Left axis deviation Minimal voltage criteria for LVH, may be normal variant Abnormal ECG Confirmed by Subhash Mcgrath ([id number]) on 01/20/2021 1:16:43 PM Referred By: REFERRED SELF Confirmed By:Harjeet Mcgrath
--- NOTE | 2021-01-20 18:19 | Billing Data ---
Date of Service January 20, 2021 Coding Level of Care Code D/C Day Management <30 mins
== END 2021-01-20 13:16 | disposition home or self-care (01) | DRG 309 ==
LOC: ED 22:57 → 1E 01-20 01:06